=== PATIENT | male | born 1970 | race Caucasian/White ===

== ENCOUNTER → 2020-03-26 13:07 | Outpatient (BNVA) | payer SELFPAY | PROVIDERS: Visit Provider Physician Assistant Medical | DX: Z02.79 Encounter for issue of other medical certificate (principal) ==

== ENCOUNTER → 2021-03-18 08:20 | Outpatient (BNVA) | payer SELFPAY | PROVIDERS: Visit Provider Physician Assistant Medical | DX: Z02.79 Encounter for issue of other medical certificate (principal) ==

== ENCOUNTER → 2022-03-17 08:29 | Outpatient (BNVA) | payer SELFPAY | PROVIDERS: Visit Provider Internal Medicine | DX: Z02.79 Encounter for issue of other medical certificate (principal) ==

== ENCOUNTER → 2023-03-16 09:30 | Outpatient (BNVA) | payer SELFPAY | PROVIDERS: Visit Provider Physician Assistant Medical | DX: Z02.79 Encounter for issue of other medical certificate (principal) ==

== ENCOUNTER 2023-04-30 16:20 | Outpatient (AMB) | payer BC, SELFPAY ==
--- NOTE | 2023-04-30 16:27 | HO.NEPHOV ---
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 His blood pressure is currently well controlled on the current medication regimen. He feels he has low testosterone levels. He was wondering about taking intramuscular testosterone injections. He tries to adhere with low-sodium diet, avoid nonsteroidal anti-inflammatory medications and maintain good hydration. He is very active. He does not have any chest pain, palpitation, syncope, orthostatic symptoms, pedal edema, urinary symptoms, nausea, vomiting or diarrhea. He does not check his blood pressure at home regularly. He has not seen a urologist. [facility] Medical History (Updated 05/01/23 @ 07:55 by Samy Quintana MD) Renal artery stenosis Hypertension Family History Mother Hypertension Father Clogged artery (heart) Social History (Updated 04/30/23 @ 16:32 by Radha Hunter) Alcohol intake: current Comment: occ Patient Tobacco Use Status: Never used Tobacco Vital Signs 04/30/23 16:28 04/30/23 17:03 Height 6 ft Weight 207 lb 4 oz BMI 28.1 BP 144/88 H 130/80 Blood Pressure Location Lt brachial Position Sitting Pulse 63 Pulse Source Pulse Oximeter Pulse Oximetry (%) 98 Oxygen Delivery Method Room Air Physical Exam Vital Signs: Last Vital Signs Pulse 63 04/30/23 16:28 BP 130/80 04/30/23 17:03 Pulse Ox 98 04/30/23 16:28 Oxygen Delivery Method Room Air 04/30/23 16:28 BMI result Body Mass Index 28.1 Const General: comfortable and no acute distress Orientation/consciousness: patient oriented x3 HEENT Head: Yes normocephalic Mouth: Normal oral and palatal mucosa present Eyes EOM: EOMs intact bilaterally Neck Neck: Yes supple Resp Auscultation: clear to auscultation bilaterally Cardio Jugular venous distension: no JVD Rate: regular rate GI Palpation (GI): Soft to palpation Auscultation: normal bowel sounds General: Yes no CVA tenderness Back/Spine/Pelvis Back: no CVA tenderness Skin General skin exam: no rashes or lesions noted Neuro General: patient oriented x3 and moves all extremities Extrem General: Yes no pedal edema Assessment & Plan Assessment & Plan (1) Low testosterone in male: Code(s): R79.89 - Other specified abnormal findings of blood chemistry (2) Renal artery stenosis: Code(s): I70.1 - Atherosclerosis of renal artery (3) Hypertension: Code(s): I10 - Essential (primary) hypertension Qualifiers: Hypertension type: renovascular hypertension Qualified Code(s): I15.0 - Renovascular hypertension Plan Francisco has hypertension from his 20s. Doppler of renal arteries in the past showed less than 60% narrowing of right renal artery. His blood pressure is currently controlled on current dose of angiotensin receptor renetta. He never wanted to take a calcium channel renetta or diuretic. In the past he has mentioned that he does not want angioplasty for renal artery stenosis, if it has to get worse, given he may have to take a blood thinner for some time. He was advised not to take any nonsteroidal anti-inflammatories and maintain good hydration along with a low-sodium diet. He also has been having some erectile disorders and was wondering whether he could take intramuscular testosterone injections as he feels his testosterone levels are on the lower side. He takes sildenafil. I ordered follow-up Doppler of his renal arteries along with repeat renal functions. I also took the liberty to refer him to Dr. Julian Pathak for evaluation of low testosterone levels and or erectile dysfunction. His sildenafil and losartan were refilled. All questions answered. Follow-up given. Orders: Orders US renal doppler 04/30/23 I10 - Essential (primary) hypertension, I70.1 - Atherosclerosis of renal artery Blood Urea Nitrogen 04/30/23 I10 - Essential (primary) hypertension, I70.1 - Atherosclerosis of renal artery Creatinine 04/30/23 I10 - Essential (primary) hypertension, I70.1 - Atherosclerosis of renal artery US renal BI 04/30/23 I10 - Essential (primary) hypertension, I70.1 - Atherosclerosis of renal artery Electrolytes 04/30/23 I10 - Essential (primary) hypertension, I70.1 - Atherosclerosis of renal artery Protein Creatinine Ratio, Ur 04/30/23 I10 - Essential (primary) hypertension, I70.1 - Atherosclerosis of renal artery Referrals Urology Referral R79.89 - Other specified abnormal findings of blood chemistry Medications: New losartan 50 mg PO BID 90 days 180 tabs 3RF sildenafil 50 mg PO DAILY 30 days PRN 30 tabs 6RF sexual activity Coding Level of Care Code Est Pt Level 4 (69735) Diagnoses Low testosterone in male R79.89 Renal artery stenosis I70.1 Renovascular hypertension I15.0 Hypertension type: renovascular hypertension Results Reviewed Nephrology Results: Urine Protein NEGATIVE MG/DL (NEG - TRACE) 03/22/19
[2023-04-30 16:28] VITALS: BP 144/88; PULSE 63; O2SAT 98; BMI 28.1
[2023-04-30 17:03] VITALS: BP 130/80
== END 2023-04-30 17:08 | disposition home or self-care (01) ==
PROVIDERS: PCP Internal Medicine; Visit Provider Internal Medicine Nephrology
DX: R79.89 Other specified abnormal findings of blood chemistry (principal); I70.1 Atherosclerosis of renal artery; I15.0 Renovascular hypertension
CPT/HCPCS: 99214

== ENCOUNTER → 2023-04-30 16:20 | Outpatient (BNVA) | payer BC, SELFPAY | PROVIDERS: PCP Internal Medicine; Visit Provider Internal Medicine Nephrology ==

== ENCOUNTER 2023-05-25 08:51 | Outpatient (REF) | payer BC, SELFPAY ==
--- NOTE | ~2023-05-25 | US_ITS ---
EXAMINATION: ULTRASOUND RENAL WITH DOPPLER CLINICAL INFORMATION: Renal artery atherosclerosis COMPARISON: None. TECHNIQUE: Real-time grayscale, color Doppler, and duplex Doppler evaluation of the kidneys and renal vasculature was performed. FINDINGS: RENAL MEASUREMENTS: Right: 10.8 x 6.4 x 6.0 cm (Sag x AP x TV) Left: 12.1 x 5.9 x 5.4 cm (Sag x AP x TV) The renal parenchyma appears normal. No hydronephrosis or nephrolithiasis. DOPPLER INTERROGATION: Aorta: 86 cm/sec Right Main Renal Artery: Proximal: 178 cm/sec Mid: 193 cm/sec Distal: 141 cm/sec Left Main Renal Artery: Proximal: 178 cm/sec Mid: 136 cm/sec Distal: 112 cm/sec Renal-Aortic Ratio (RAR): Right: 2.3 Left: 2.1 Bilateral upper pole, interpolar and lower pole [segmental] arteriolar resistive indices are within normal limits. Bilateral upper pole, interpolar and lower pole [segmental] arteriolar pulse doppler waveforms are unremarkable, with uniformly rapid upstrokes and no parvus et tardus configuration. US/US renal doppler IMPRESSION: No hemodynamic significant bilateral renal artery stenosis is seen.
--- NOTE | ~2023-05-25 | US_ITS ---
EXAMINATION: ULTRASOUND RENAL WITH DOPPLER CLINICAL INFORMATION: Renal artery atherosclerosis COMPARISON: None. TECHNIQUE: Real-time grayscale, color Doppler, and duplex Doppler evaluation of the kidneys and renal vasculature was performed. FINDINGS: RENAL MEASUREMENTS: Right: 10.8 x 6.4 x 6.0 cm (Sag x AP x TV) Left: 12.1 x 5.9 x 5.4 cm (Sag x AP x TV) The renal parenchyma appears normal. No hydronephrosis or nephrolithiasis. DOPPLER INTERROGATION: Aorta: 86 cm/sec Right Main Renal Artery: Proximal: 178 cm/sec Mid: 193 cm/sec Distal: 141 cm/sec Left Main Renal Artery: Proximal: 178 cm/sec Mid: 136 cm/sec Distal: 112 cm/sec Renal-Aortic Ratio (RAR): Right: 2.3 Left: 2.1 Bilateral upper pole, interpolar and lower pole [segmental] arteriolar resistive indices are within normal limits. Bilateral upper pole, interpolar and lower pole [segmental] arteriolar pulse doppler waveforms are unremarkable, with uniformly rapid upstrokes and no parvus et tardus configuration. US/US renal BI IMPRESSION: No hemodynamic significant bilateral renal artery stenosis is seen.
== END 2023-05-25 08:52 | disposition home or self-care (01) ==
LOC: HO.US 08:51
PROVIDERS: PCP Internal Medicine; Visit Provider Internal Medicine Nephrology
DX: I70.1 Atherosclerosis of renal artery (principal); I10 Essential (primary) hypertension
CPT/HCPCS: 76775; 93975

== ENCOUNTER 2023-07-01 11:04 | Outpatient (AMB) | payer BC, SELFPAY ==
--- NOTE | 2023-07-01 11:01 | MHC.OFFVIS ---
Intake Intake Visit Reasons: ?hypogonadism Intake Note: NEW Patient presents today to established treatment for hypogonadism Meds- Sildenafil Allergies to antibiotics: None Blood thinner: None Patient Symptoms: Patient stated he does not have any pain or urinary issues, he wants to discuss issues with erectile dysfunction and testosterone levels. 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 Barry. He has a past medical history of hypertension and renal artery stenosis. He presents to the office today as a new patient for question of hypogonadism and erectile dysfunction. In discussion with the patient today he reports to be doing and feeling well. He reports having followed up with a physician online for testosterone replacement therapy. He reports he has started TRT approximately 1 month ago however made today's appointment for a 2nd opinion. In review of patient's medical records that were brought to the office today it appears prior to initiation of testosterone replacement and HCG patient's testosterone level was approximately 450 and estradiol was approximately 35. In discussion with the patient today he reports having initiated testosterone therapy as he feels his friends recommended it due to his ongoing fatigue, mood, and ED. In discussion with the patient today he reports he does not get adequate amounts of sleep as he works from approximately 04:00 till 21:00. He reports since initiation of TRT he has not felt any benefits of testosterone replacement. He states my friend/ friends feel like they are on top of the world . He otherwise denies any bothersome urinary issues or concerns. He denies urinary urgency, urinary frequency, incontinence, nocturia, hematuria, dysuria, foul smelling urine, changes to urinary stream, flank pain, fever, and or chills. He is happy with his current voiding parameters. He reports he continues with feeling fatigue and continues with issues maintaining erections. He also reports utilizing Viagra 100 mg p.r.n. sexual activity and feels this is somewhat helpful. Discussed at length lifestyle modifications to assist with erectile dysfunction and fatigue. He denies any signs or symptoms of sleep apnea. He otherwise offers no other issues or concerns at this time. [facility] Medical History Renal artery stenosis Hypertension Family History Mother Hypertension Father Clogged artery (heart) Social History Alcohol intake: current Comment: occ Patient Tobacco Use Status: Never used Tobacco Review of Systems Const All systems reviewed & are unremarkable except as noted in HPI and below Physical Exam Const General: cooperative, healthy appearing, comfortable, no acute distress, well developed, alert and awake Orientation/consciousness: patient oriented x3 Limitations: no limitations HEENT Head: Yes normal to inspection, Yes normocephalic and Yes atraumatic Ears: hearing grossly normal bilaterally Eyes General: appearance normal, both eyes and all related structures Neck Neck: Yes normal visual inspection and Yes trachea midline Chest Chest palpation & inspection: normal inspection of the chest Resp Effort & Inspection: normal respiratory effort and able to speak in complete sentences Cardio Rate: regular rate GI Inspection: Yes normal to inspection General: Yes no CVA tenderness Back/Spine/Pelvis Back: no CVA tenderness Skin General skin exam: no rashes or lesions noted Neuro General: patient oriented x3 Extrem General: Yes normal to inspection Psych Appearance: grossly normal and well kempt Mental Status: mental status grossly normal Speech and movement: Normal speech and movement present and Clear speech present Affect: normal affect Attitude: cooperative Thought process: Normal thought process present Thought content: Normal thought content present Insight: Fair insight present (Psych) Judgement: Fair judgement present (Psych) Results AMB Urinalysis, Automated UA Leukoctes 0 Bradyon/uL Last Edit by Ava Alvarado CMA on 07/01/23 11:23 UA Nitrite Negative Last Edit by Ava Alvarado CMA on 07/01/23 11:23 UA Urobilinogen 0.2 mg/dL Last Edit by Ava Alvarado CMA on 07/01/23 11:23 UA Protein 0 mg/dL Last Edit by Ava Alvarado CMA on 07/01/23 11:23 UA pH 7.0 Last Edit by Ava Alvarado CMA on 07/01/23 11:23 UA Blood 0 Lukas/uL Last Edit by Ava Alvarado CMA on 07/01/23 11:23 UA Specific Mobile 1.010 Last Edit by Ava Alvarado CMA on 07/01/23 11:23 UA Ketone Negative Last Edit by Ava Alvarado CMA on 07/01/23 11:23 UA Bilirubin 0 mg/dL Last Edit by Ava Alvarado CMA on 07/01/23 11:23 UA Glucose 0 mg/dL Last Edit by Ava Alvarado CMA on 07/01/23 11:23 Results Reviewed Results Reviewed: Laboratory Last Values Urine pH (Auto) 7.0 07/01/23 11:06 Specific Mobile (Auto) 1.010 07/01/23 11:06 Urine Protein (Auto) 0 mg/dL 07/01/23 11:06 Glucose (UA)(Auto) 0 mg/dL 07/01/23 11:06 Urine Ketones (Auto) Negative 07/01/23 11:06 Urine Blood (Auto) 0 Lukas/uL 07/01/23 11:06 Urine Nitrite (Auto) Negative 07/01/23 11:06 Urine Bilirubin (Auto) 0 mg/dL 07/01/23 11:06 Urine Urobilinogen (Auto) 0.2 mg/dL 07/01/23 11:06 Leukocyte Esterase (Auto) 0 Braydon/uL 07/01/23 11:06 Assessment & Plan Assessment & Plan (1) Low libido: Code(s): R68.82 - Decreased libido (2) Fatigue: Code(s): R53.83 - Other fatigue (3) Erectile dysfunction: Code(s): N52.9 - Male erectile dysfunction, unspecified Plan In office urinalysis results reviewed with the patient today; as noted above. Medical records reviewed at today's office visit Discussed at length lifestyle modifications to assist with fatigue and erectile dysfunction/ Discussed at length risks and benefits of TRT He reports be happy with current voiding parameters He denies any bothersome urinary issues Follow-up p.r.n.; or sooner with any issues, concerns, and or questions. Orders: Orders AMB Urinalysis Automated 07/01/23 R33.9 - Retention of urine, unspecified Patient Instructions: The patient had an opportunity to ask questions regarding the treatment plan. All questions were answered. Physical exam, labs, and imaging were discussed and reviewed in detail. As well as risks, benefits, and discussion of treatment choices. No major barriers to understanding were identified. The patient expressed understanding and agreement with the above treatment plan. The patient was made aware they should contact our office by phone for worsening of their current condition, the appearance of new symptoms, or with any questions or concerns. Compliance is encouraged with any medications and follow up testing that is ordered. It is a privilege to be allowed the opportunity to participate in? your urological care.? Again, if you have any questions or concerns If you have any questions or concerns please do not hesitate to contact me. The office is [phone]. This note is constructed using voice recognition software. While every effort has been made to ensure accuracy motorboat operator errors may have been included. Yours sincerely, REJI Manley Coding Level of Care Code New Pt Level 4 (14086) Diagnoses Low libido R68.82 Fatigue R53.83 Erectile dysfunction N52.9 Time Spent (min) 35
== END 2023-07-01 11:57 | disposition home or self-care (01) ==
PROVIDERS: PCP Internal Medicine; Visit Provider Nurse Practitioner Family
DX: R68.82 Decreased libido (principal); R53.83 Other fatigue; N52.9 Male erectile dysfunction, unspecified
CPT/HCPCS: 99204

== ENCOUNTER → 2023-07-01 11:09 | Outpatient (BNVA) | payer BC, SELFPAY | PROVIDERS: PCP Internal Medicine; Visit Provider Nurse Practitioner Family | DX: R68.82 Decreased libido (principal); R53.83 Other fatigue; N52.9 Male erectile dysfunction, unspecified | CPT/HCPCS: 81003 ==

== ENCOUNTER 2023-10-29 16:19 | Outpatient (AMB) | payer BC, SELFPAY ==
--- NOTE | 2023-10-29 16:19 | HO.NEPHOV ---
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 His blood pressure is currently well controlled on the current medication regimen. He feels he has low testosterone levels. He was wondering about taking intramuscular testosterone injections. He tries to adhere with low-sodium diet, avoid nonsteroidal anti-inflammatory medications and maintain good hydration. He is very active. He does not have any chest pain, palpitation, syncope, orthostatic symptoms, pedal edema, urinary symptoms, nausea, vomiting or diarrhea. He does not check his blood pressure at home regularly. [facility] Medical History Renal artery stenosis Hypertension Family History Mother Hypertension Father Clogged artery (heart) Social History Alcohol intake: current Comment: [facility] Patient Tobacco Use Status: Never used Tobacco Physical Exam Vital Signs: Last Vital Signs Pulse 69 10/29/23 16:20 BP 130/82 10/29/23 16:20 Pulse Ox 97 10/29/23 16:20 Oxygen Delivery Method Room Air 10/29/23 16:20 BMI result Body Mass Index 25.6 Const General: comfortable and no acute distress Orientation/consciousness: patient oriented x3 HEENT Head: Yes normocephalic Mouth: Normal oral and palatal mucosa present Eyes EOM: EOMs intact bilaterally Neck Neck: Yes supple Resp Auscultation: clear to auscultation bilaterally Cardio Jugular venous distension: no JVD Rate: regular rate GI Palpation (GI): Soft to palpation Auscultation: normal bowel sounds General: Yes no CVA tenderness Back/Spine/Pelvis Back: no CVA tenderness Skin General skin exam: no rashes or lesions noted Neuro General: patient oriented x3 and moves all extremities Extrem General: Yes no pedal edema Results Reviewed Nephrology Results: Urine Protein NEGATIVE MG/DL (NEG - TRACE) 03/22/19 Renal US 05/25/23 Assessment & Plan Assessment & Plan (1) Hypertension: Code(s): I10 - Essential (primary) hypertension Category: Medical Qualifiers: Hypertension type: renovascular hypertension Qualified Code(s): I15.0 - Renovascular hypertension (2) Renal artery stenosis: Code(s): I70.1 - Atherosclerosis of renal artery Category: Medical Plan Dong has hypertension from his 20s. Doppler of renal arteries in the past showed less than 60% narrowing of right renal artery. His blood pressure is currently controlled on current dose of angiotensin receptor renetta. He never wanted to take a calcium channel renetta or diuretic. In the past he has mentioned that he does not want angioplasty for renal artery stenosis, if it has to get worse, given he may have to take a blood thinner for some time. He was advised not to take any nonsteroidal anti-inflammatories and maintain good hydration along with a low-sodium diet. He takes sildenafil as neede. I ordered follow-up Doppler of his renal arteries along with repeat renal functions. All questions answered. Follow-up given. Orders: Orders Creatinine Today I15.0 - Renovascular hypertension, I70.1 - Atherosclerosis of renal artery Blood Urea Nitrogen Today I15.0 - Renovascular hypertension, I70.1 - Atherosclerosis of renal artery Electrolytes Today I15.0 - Renovascular hypertension, I70.1 - Atherosclerosis of renal artery Protein Creatinine Ratio, Ur Today I15.0 - Renovascular hypertension, I70.1 - Atherosclerosis of renal artery Medications: Changed From losartan 50 mg PO BID 90 days 180 tabs 3RF To losartan 100 mg PO DAILY 90 days 90 tabs 4RF Coding Level of Care Code Est Pt Level 4 (67063) Diagnoses Renovascular hypertension I15.0 Hypertension type: renovascular hypertension Renal artery stenosis I70.1
[2023-10-29 16:20] VITALS: BP 130/82; PULSE 69; O2SAT 97; BMI 25.6
== END 2023-10-29 16:42 | disposition home or self-care (01) ==
PROVIDERS: PCP Internal Medicine; Visit Provider Internal Medicine Nephrology
DX: I15.0 Renovascular hypertension (principal); I70.1 Atherosclerosis of renal artery
CPT/HCPCS: 99214

== ENCOUNTER → 2023-10-29 16:19 | Outpatient (BNVA) | payer BC, SELFPAY | PROVIDERS: PCP Internal Medicine; Visit Provider Internal Medicine Nephrology ==

== ENCOUNTER → 2024-03-14 09:40 | Outpatient (BNVA) | payer SELFPAY | PROVIDERS: PCP Internal Medicine; Visit Provider Physician Assistant Medical | DX: Z02.79 Encounter for issue of other medical certificate (principal) ==

== ENCOUNTER 2024-10-27 16:15 | Outpatient (AMB) | payer BC, SELFPAY ==
--- NOTE | 2024-10-27 16:18 | HO.NEPHOV ---
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 His blood pressure is currently well controlled on the current medication regimen. He feels he has low testosterone levels. He was wondering about taking intramuscular testosterone injections. He tries to adhere with low-sodium diet, avoid nonsteroidal anti-inflammatory medications and maintain good hydration. He is very active. He does not have any chest pain, palpitation, syncope, orthostatic symptoms, pedal edema, urinary symptoms, nausea, vomiting or diarrhea. He does not check his blood pressure at home regularly. [facility] Medical History Renal artery stenosis Hypertension Family History Mother Hypertension Father Clogged artery (heart) Social History Alcohol intake: current Comment: occ Patient Tobacco Use Status: Never used Tobacco Review of Systems Const All systems reviewed & are unremarkable except as noted in HPI and below Physical Exam Const General: comfortable and no acute distress Orientation/consciousness: patient oriented x3 HEENT Head: Yes normocephalic Mouth: Normal oral and palatal mucosa present Eyes EOM: EOMs intact bilaterally Neck Neck: Yes supple Resp Auscultation: clear to auscultation bilaterally Cardio Jugular venous distension: no JVD Rate: regular rate GI Palpation (GI): Soft to palpation Auscultation: normal bowel sounds General: Yes no CVA tenderness Back/Spine/Pelvis Back: no CVA tenderness Skin General skin exam: no rashes or lesions noted Neuro General: patient oriented x3 and moves all extremities Extrem General: Yes no pedal edema Results Reviewed Nephrology Results: Urine Protein, (NEG - TRACE) NEGATIVE MG/DL 03/22/19 Renal US 05/25/23 Assessment & Plan Assessment & Plan (1) Hypertension: Code(s): I10 - Essential (primary) hypertension Category: Medical Qualifiers: Hypertension type: renovascular hypertension Qualified Code(s): I15.0 - Renovascular hypertension (2) Renal artery stenosis: Code(s): I70.1 - Atherosclerosis of renal artery Category: Medical Plan Dong has hypertension from his 20s. Doppler of renal arteries in the past showed less than 60% narrowing of right renal artery. His blood pressure is currently controlled on current dose of angiotensin receptor renetta. He never wanted to take a calcium channel renetta or diuretic. In the past he has mentioned that he does not want angioplasty for renal artery stenosis, if it has to get worse, given he may have to take a blood thinner for some time. He was advised not to take any nonsteroidal anti-inflammatories and maintain good hydration along with a low-sodium diet. He takes sildenafil as needed. Doppler of his renal arteries last year did not show any significant ANDREIA. All questions answered. Follow-up given. Orders: Orders Blood Urea Nitrogen 1 Year I15.0 - Renovascular hypertension, I70.1 - Atherosclerosis of renal artery Electrolytes 1 Year I15.0 - Renovascular hypertension, I70.1 - Atherosclerosis of renal artery Creatinine 1 Year I15.0 - Renovascular hypertension, I70.1 - Atherosclerosis of renal artery Protein Creatinine Ratio, Ur 1 Year I15.0 - Renovascular hypertension, I70.1 - Atherosclerosis of renal artery Medications: New sildenafil (Viagra) administer 30 minutes to 4 hours before activity 100 mg PO DAILY PRN 30 tabs 10RF sexual activity Discontinued tadalafil Discontinued Reason: Doctor's Order 5 mg PO DAILY 30 tabs 3RF Coding Level of Care Code Est Pt Level 4 (29789) Diagnoses Renovascular hypertension I15.0 Hypertension type: renovascular hypertension Renal artery stenosis I70.1
[2024-10-27 16:24] VITALS: BP 140/90; PULSE 62; O2SAT 97; BMI 28.7
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
--- OUTSIDE RECORDS SUMMARY | 2024-10-27 16:25 | XMS_ITS ---
Author Name [facility] Organization Unknown History of Medication Use Medication Directions Dispensed Refills Start Date End Date Stat ciclopirox 8 % topical solution APPLY 1 APPLICATION TO NAILS DAILY REMOVE ONCE A WEEK WITH RUBBING ALCOHOL active desonide 0.05 % topical ointment APPLY SPARINGLY TO EYELIDS TWICE A DAY X2 WKS ON, 1 WK OFF NEEDED active fluorouracil 5 % topical cream PLEASE SEE ATTACHED FOR DETAILED DIRECTIONS active loratadine 10 mg tablet TAKE 1 TABLET BY MOUTH TWICE A DAY active losartan 100 mg tablet TAKE 1 TABLET BY MOUTH EVERY DAY FOR 90 DAYS active losartan 50 mg tablet TAKE 1 TABLET BY MOUTH TWICE A DAY active naproxen 250 mg tablet TAKE 2 TABLETS BY MOUTH TWICE A DAY FOR 7 DAYS active ondansetron 4 mg disintegrating tablet TAKE 1 TABLET BY MOUTH EVERY 8 HOURS NEEDED FOR NAUSEA/VOMITING active oxycodone 5 mg tablet TAKE 1 TABLET BY MOUTH EVERY 4-6 HOURS NEEDED FOR POSTOPERATIVE PAIN FOR 5 DAYS active prednisone 5 mg tablet PLEASE SEE ATTACHED FOR DETAILED DIRECTIONS active sildenafil 50 mg tablet TAKE 1 TABLET NEEDED FOR SEXUAL ACTIVITY active tadalafil 5 mg tablet TAKE 1 TABLET BY MOUTH DAILY active terbinafine HCl 250 mg tablet TAKE 1 TABLET BY MOUTH EVERY DAY active zolpidem 10 mg tablet TAKE 1 TABLET EVER Y DAY BY ORAL ROUTE NEEDED. active Encounters Encounter Type Encounter Reason Primary Diagnosis Location Date Ambulatory [facility] 08/17/2024 Ambulatory [facility] 08/16/2024 Ambulatory [facility] 07/25/2024 Ambulatory [facility] 07/12/2024 Ambulatory [facility] 07/12/2024 Ambulatory [facility] 07/12/2024 Ambulatory [facility] 07/12/2024 Ambulatory [facility] 06/02/2024 Ambulatory [facility] 06/02/2024
--- OUTSIDE RECORDS SUMMARY | 2024-10-27 16:25 | XMS_ITS | Encounter Summary ---
Author Organization [facility] Address [address] [place] [address] Phone Care Team Providers Care Director Of Photography Name Role Phone Dong Barry MD Primary Care Provider [phone] Encounter Details Date Type Department Care Team (Late st Contact Info) Description 2022 Telephone [facility] [address] [place] [address] Samy Quintana MD Social History Tobacco Use Types Packs/Day Years Used Date Smoking Tobacco: Never Smokeless Tobacco: Never Alcohol Use Standard Drinks/Week Comments Yes 0 (1 standard drink = 0.6 oz pur e alcohol) social Sex and Gender Information Value Date Recorded Sex Assigned at Not on file Legal Sex Male 4:59 PM EST Gender Identity Not on file Sexual Orientation Not on file documented as of this encounter Miscellaneous Notes * Telephone Encounter - Sujata Vasquez - 2022 10:20 AM EDT Pt called he would like to speak with you reg some issues he's been having. Pt mel not go into further detail. Please call him back at [phone] Thank you documented in this encounter Plan of Treatment Not on file documented as of this encounter Visit Diagnoses Not on filedocumented in this encounter Care Teams Director Of Photography Relationship Specialty Start Date End Date Dong Barry MD [address] [place] [address] PCP - General 04/23/20 documented as of this encounter
--- OUTSIDE RECORDS SUMMARY | 2024-10-27 16:25 | XMS_ITS | Clinical Summary ---
Author Organization [employer] Address [address] [place] [address] Care Team Providers Care Manufacturing Supervisor 2Nd Shift Name Role Phone Unavailable Primary Care Provider Unavailabl e Allergies No known active allergies Medications losartan (Cozaar) 25 MG tablet 1 tablet in the morning. 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 Presbyopia of both eyes 03/24/2023 03/24/20 23 Family History Medical History Relation Name Comments Glaucoma Mother Paternal uncle almost blind Other paternal uncle macular degeneration Other Relation Name Status Comments Mother Other Social History Tobacco Use Types Packs/Day Years Used Date Smoking Tobacco: Never Tobacco Cessation:Counseling Given: Not Answered Sex and Gender Information Value Date Recorded Sex Assigned at Male 04/30/2023 12:02 PM EST Legal Sex Male 8:37 PM EDT Gender Identity Male 04/30/2023 12:02 PM EST Sexual Orientation Choose not to disclose 2023 12:02 PM EST Last Filed Vital Signs Vital Sign Reading Time Taken Comments Blood Pressure 134/86 05/06/2023 10:22 AM EST Pulse - - Temperature 36.3 C (97.3 F) 05/06/2023 10:22 AM EST Respiratory Rate - - Oxygen Saturation - - Inhaled Oxygen Concentration - - Weight - - Height - - Body Mass Index - - Plan of Treatment Health Maintenance Due Date Last Done Comments CT Colonography 1970 Colonoscopy 1970 Colorectal Cancer Screening 1970 Depression Screening 1970 FIT DNA/Cologuard 1970 FIT 1970 FOBT 1970 HIV Screening 1970 Lipid Panel 1970 SDOH Screening 1970 Sigmoidoscopy 1970 Disability Screening 1970 Alcohol/Substance Use Screening 1982 Tobacco Screening 1982 Hepatitis C Screening 01/29/1988 Hepatitis B Vaccines (1 of 3 - 19+ 3-dose series) 1989 Pneumococcal Vaccine: 50+ Years (1 of 1 - PCV) 01/29/2020 COVID-19 Vaccine (3 - 2023- season) 2023 09/21/2020, 08/31/2020 Influenza Vaccine (#1) 2024 DTaP/Tdap/Td Vaccines (4 - Td or Tdap) 10/18/2029 10/19/2019, 03/29/2018, 04/21/2011, Additional history exists RSV Patients and Patients Aged 60 years or older (1 - 1-dose 75+ series) 2045 Zoster Vaccines Completed 07/11/2021, 04/11/2021 HIB Vaccines Aged Out No longer eligi ble based on patient's age to complete this topic HPV Vaccines Aged Out No longer eligi ble based on patient's age to complete this topic Hepatitis A Vaccines Aged Out No long er eligible based on patient's age to complete this topic IPV Vaccines Aged Out No longer eligi ble based on patient's age to complete this topic Meningococcal B Vaccine Aged Out No l onger eligible based on patient's age to complete this topic Meningococcal Vaccine Aged Out No priyanka mikel eligible based on patient's age to complete this topic RSV under 20 months Aged Out No longe r eligible based on patient's age to complete this topic Rotavirus Vaccines Aged Out No longer eligible based on patient's age to complete this topic Insurance [facility] PPO
== END 2024-10-28 09:59 | disposition home or self-care (01) ==
LOC: HO.HKAS 16:15
PROVIDERS: PCP Internal Medicine; Visit Provider Internal Medicine Nephrology
DX: I15.0 Renovascular hypertension (principal); I70.1 Atherosclerosis of renal artery
CPT/HCPCS: 99214

== ENCOUNTER 2025-01-20 08:44 | Outpatient (AMB) | payer BC, SELFPAY ==
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
[2025-01-20 08:58] VITALS: BMI 28.5
--- OUTSIDE RECORDS SUMMARY | 2025-01-20 09:03 | XMS_ITS | Encounter Summary ---
Author Organization [facility] Address [address] [place] [address] Phone Care Team Providers Care Assistant Athletic Trainer Name Role Phone Dong Barry MD Primary Care Provider [phone] Encounter Details Date Type Department Care Team (Late st Contact Info) Description 2022 Telephone [facility] [address] [place] [address] Samy Quintana MD Social History [...] further detail. Please call him back at [phone] Thank you documented in this encounter Plan of Treatment Not on file documented as of this encounter Visit Diagnoses Not on filedocumented in this encounter Care Teams Assistant Athletic Trainer Relationship Specialty Start Date End Date Dong Barry MD [address] [place] [address] PCP - General 04/23/20 documented as of this encounter
--- OUTSIDE RECORDS SUMMARY | 2025-01-20 09:03 | XMS_ITS | Encounter Summary ---
Author Organization [facility] Address [address] [place] [address] Phone Care Team Providers Care Water Conservationist Name Role Phone Dong Barry MD Primary Care Provider [phone] Encounter Details Date Type Department Care Team (Late st Contact Info) Description 07/08/2021 Telephone [facility] [address] [place] [address] Samy Quintana MD Social History Tobacco Use Types Packs/Day Years Used Date Smoking Tobacco: Never Smokeless Tobacco: Never Alcohol Use Standard Drinks/Week Comments No 0 (1 standard drink = 0.6 oz pur e alcohol) Sex and Gender Information Value Date Recorded Sex Assigned at Not on file Legal Sex Male 4:59 PM EST Gender Identity Not on file Sexual Orientation Not on file documented as of this encounter Miscellaneous Notes * Telephone Encounter - Sujata Vasquez - 07/08/2021 2:51 PM EDT Pt called he would like to speak with you reg his bp. Its normal for the time being he just has some additional questions. Please call him back at [phone] Thank you documented in this encounter Plan of Treatment Not on file documented as of this encounter Visit Diagnoses Not on filedocumented in this encounter Care Teams Water Conservationist Relationship Specialty Start Date End Date Dong Barry MD [address] [place] [phone] PCP - General 04/23/20 documented as of this encounter
--- OUTSIDE RECORDS SUMMARY | 2025-01-20 09:04 | XMS_ITS | Clinical Summary ---
Author Organization [facility] Address [address] [facility] [address] [place] [address] Care Team Providers Care Producer Assistant Name Role Phone Unavailable Primary Care Provider [...] - PCV) 01/29/2020 COVID-19 Vaccine (3 - 2024- season) 2024 09/21/2020, 08/31/2020 Influenza Vaccine (#1) 2024 DTaP/Tdap/Td [...] patient's age to complete this topic Insurance [facility] PPO
--- OUTSIDE RECORDS SUMMARY | 2025-01-20 09:04 | XMS_ITS | Clinical Summary ---
Author Organization [facility] Address [address] [facility] [facility] [address] [place] [address] Phone Care Team Providers Care Telesales Agent Name Role Phone Dong Barry MD Primary Care Provider [phone] Allergies No known active allergies Medications ascorbic acid (VITAMIN C) 500 MG tablet Take 1 tablet by mouth 1 (one) time each day Active Calcium-Magnesi um-Vitamin D 400-166.7-133.3 MG-MG-UNIT tablet Take 1 tablet by mouth 1 (one) time each day Active Coenzyme Q10 100 MG tablet Take 1 tablet by mouth 1 (one) time each day Active omega-3 (FISH OIL) 1000 MG capsule Take 2 capsules by mouth 1 (one) time each day Active Glucosamine-Cho ndroitin 750-600 MG tablet Take 1 tablet by mouth 1 (one) time each day Active Multiple Vitamin (MULTIVITAMIN ADULT PO) Take 1 tablet by mouth 1 (one) time each day Active sildenafil (Viagra) 50 MG tablet Take 1 tablet (50 mg total) by mouth 1 (one) time each day if needed for erectile dysfunction 30 tablet 5 3 Active losartan (COZAAR) 50 MG tablet Take 1 tablet (50 mg total) by mouth in the morning and 1 tablet (50 mg total) in the evening. 180 tablet 5 3 Active Active Problems Problem Noted Date Diagnosed Date Essential hypertension 09/20/2020 Renal artery stenosis 09/20/2020 Hypertension 09/20/2020 Spondylosis without myelopathy 01/16/2020 Low back pain 10/08/2012 Overview (09/20/2020): Low back pain Immunizations Immunization Administration Dates Next Due [employer] SARS-COV-2 09/21/2020,08/31/2020 Tdap 10/19/2019,04/21/2011 Family History Medical History Relation Comments Diabetes Father Heart disease Father Hypertension Mother Relation Status Comments Father Alive Mother Alive Social History Tobacco Use Types Packs/Day Years Used Date Smoking Tobacco: Never Smokeless Tobacco: Never Tobacco Cessation:Counseling Given: Not Answered Alcohol Use Standard Drinks/Week Comments Yes 0 (1 standard drink = 0.6 oz pur e alcohol) social Sex and Gender Information Value Date Recorded Sex Assigned at Not on file Legal Sex Male 4:59 PM EST Gender Identity Not on file Sexual Orientation Not on file Last Filed Vital Signs Vital Sign Reading Time Taken Comments Blood Pressure 130/80 06/26/2022 3:22 PM EDT Pulse 70 06/26/2022 3:22 PM EDT Temperature - - Respiratory Rate - - Oxygen Saturation 97% 12/26/2021 3:30 PM EDT Inhaled Oxygen Concentration - - Weight 95.7 kg (211 lb) 06/26/2022 3:22 PM EDT Height 182.9 cm (6') 08/05/2019 12:00 PM EDT Body Mass Index 28.62 08/05/2019 12:00 PM EDT Plan of Treatment Health Maintenance Due Date Last Done Comments Hepatitis B Vaccine (1 of 3 - 19+ 3-dose series) 01/28 Pneumococcal Vaccine: 50+ Years (1 of 2 - PCV) 989 Colorectal Cancer Screening: Annual FOBT 2019 Colorectal Cancer Screening: Colonoscopy 2019 Colorectal Cancer Screening: Sigmoidoscopy 2019 Influenza Vaccine (#1) 2024 Insurance [facility] Care Teams Telesales Agent Relationship Specialty Start Date End Date Dong Barry MD [address] [place] [phone] PCP - General 04/23/20
== END 2025-01-20 10:31 | disposition home or self-care (01) ==
LOC: HO.HNS 08:45
PROVIDERS: PCP Internal Medicine; Visit Provider Physician Assistant
DX: M54.9 Dorsalgia, unspecified (principal)
CPT/HCPCS: 99204

== ENCOUNTER 2025-01-20 08:44 | Outpatient (REF) | payer BC, SELFPAY ==
--- NOTE | ~2025-01-20 | XR_ITS ---
EXAMINATION: XR LUMBOSACRAL SPINE CLINICAL INFORMATION: M54.9 - Dorsalgia, unspecified COMPARISON: None available. TECHNIQUE: 4 views of the lumbar spine, inclusive of flexion and extension views, were obtained. FINDINGS: There is a minimal left convex scoliosis, apex at L3-4. There is a normal lumbar lordosis. There is a 2 mm degenerative retrolisthesis of L2 on L3. Alignment is otherwise anatomic. There is no fracture, compression deformity, or suspicious bone lesion. Severe disc degeneration is present at L1-2, and L5-S1 with disc vacuum phenomenon, and sclerosis of the endplates. There is otherwise mild to moderate disc degeneration at the other levels. There is normal facet alignment. There are degenerative facet changes spanning L4-S1. Flexion and extension views demonstrate no evidence of instability or new subluxation. The sacrum is intact. There are mild degenerative changes in the SI joints. There are no soft tissue abnormalities. XR/XR lumbar spine 4V min IMPRESSION: 1. No acute bony abnormalities. 2. Moderate multilevel spondylosis, most significant at L1-2, and L5-S1. There is a minimal levoconvex scoliosis. 3. No evidence of instability on flexion and extension views. Electronically signed by: Robbi Rosa MD 01/20/2025 09:36 AM EDT
--- OUTSIDE RECORDS SUMMARY | 2025-01-20 09:54 | XMS_ITS | Encounter Summary ---
Author Organization [facility] Address [address] [facility] [address] [place] [phone] Phone Care Team Providers Care Motion And Time Study Teacher Name Role Phone Dong Barry MD Primary Care Provider [phone] Samy Quintana MD Unavailable Encounter Details Date Type Department Care Team (Late st Contact Info) Description 06/18/2020 Procedure Pass [facility] Endoscopy Admitting Dept Virtual Department [address] [place] [address] Social History Tobacco Use Types Packs/Day Years Used Date Smoking Tobacco: Never Smokeless Tobacco: Never Alcohol Use Standard Drinks/Week Comments Not Currently 0 (1 standard drink = 0.6 oz pur e alcohol) Sex and Gender Information Value Date Recorded Sex Assigned at Not on file Legal Sex Male 5:40 PM EST Gender Identity Not on file Sexual Orientation Not on file documented as of this encounter Plan of Treatment Not on file documented as of this encounter Visit Diagnoses Not on filedocumented in this encounter Care Teams Motion And Time Study Teacher Relationship Specialty Start Date End Date Dong Barry MD PCP - General Internal Medicine 01/10/20 Samy Quintana MD Flower Arranger Nephrology 01/16/20 documented as of this encounter Additional Source Comments The information contained in this document represents components of the legal health record. It is not the complete legal health record.[facility]
--- OUTSIDE RECORDS SUMMARY | 2025-01-20 09:54 | XMS_ITS | Encounter Summary ---
Author Organization [facility] Address [address] [facility] [address] [place] [phone] Phone Care Team Providers Care Center Consultant Name Role Phone Dong Barry MD Primary Care Provider [phone] Samy Quintana MD Unavailable Encounter Details Date Type Department Care Team (Late st Contact Info) Description 04/17/2022 Procedure Pass [place] Admitting Dept - Virtual Department [address] [place] [address] Social History Tobacco Use Types Packs/Day Years Used Date Smoking Tobacco: Never Smokeless Tobacco: Never Alcohol Use Standard Drinks/Week Comments Never 0 (1 standard drink = 0.6 oz [...] on filedocumented in this encounter Care Teams Center Consultant Relationship Specialty Start Date End Date Dong Barry MD PCP - General Internal Medicine 01/10/20 Samy Quintana MD Food Beverage Server Nephrology 01/16/20 documented as of this encounter Additional Source Comments The information contained in this document represents components of the legal health record. It is not the complete legal health record.[facility]
--- OUTSIDE RECORDS SUMMARY | 2025-01-20 09:54 | XMS_ITS | Encounter Summary ---
Author Organization [facility] Address [address] [facility] [address] [place] [phone] Phone Care Team Providers Care Manager Video Name Role Phone Dong Barry MD Primary Care Provider [phone] Samy Quintana MD Unavailable Encounter Details Date Type Department Care Team (Late st Contact Info) Description 02/01/2024 Procedure Pass [facility] [place] [address] [place] [address] Social History Tobacco Use Types Packs/Day Years Used Date Smoking Tobacco: Never Smokeless Tobacco: Never Alcohol Use Standard Drinks/Week Comments Never 0 (1 standard drink = 0.6 oz pur e alcohol) Education Answer Date Recorded Are you interested in more education? Not on rony e 08/24/2022 Are you concerned about learning? Not on file 08/24/2022 No 08/24/2022 No 08/24/2022 Digital Access Answer Date Recorded No 09/07/2022 No 09/07/2022 Reliable internet access at home? Not on file 09/07/2022 Device with a working camera? Not on file Intimate Partner Violence Answer Date R ecorded Are you denied basic needs s uch as food, clothing, or medical care? No 02/01/2024 In the past 12 months have y ou been in a relationship with a person who hurts, threatens, or tries to control you? No 02/01/2024 Are you denied basic needs s uch as food, clothing, or medical care? No 02/01/2024 In the past 12 months have y ou been in a relationship with a person who hurts, threatens, or tries to control you? No 02/01/2024 Sex and Gender Information Value Date Recorded Sex Assigned at Not on file Legal Sex Male 5:40 PM EST Gender Identity Not on file Sexual Orientation Not on file documented as of this encounter Plan of Treatment Not on file documented as of this encounter Visit Diagnoses Not on filedocumented in this encounter Care Teams Manager Video Relationship Specialty Start Date End Date Dong Barry MD [email or web address] PCP - General Internal Medicine 01/10/20 Samy Quintana MD Excavating Contractor Nephrology 01/16/20 documented as of this encounter Additional Source Comments The information contained in this document represents components of the legal health record. It is not the complete legal health record.[facility]
--- OUTSIDE RECORDS SUMMARY | 2025-01-20 09:54 | XMS_ITS | Clinical Summary ---
Author Organization [facility] Address [address] [place] [address] Phone Care Team Providers Care [facility] Television Rental Clerk Name Role Phone Yuriy Reaves MD Primary Care Provider [phone] Samy Quintana MD Unavailable Allergies No known active allergies Medications losartan (COZAAR) 50 MG tablet Take 100 mg by mouth daily. Active ibuprofen (ADVIL,MOTRIN) 200 MG tablet Take 200 mg by mouth every 6 (six) hours as needed for pain (specific location in comments). Active multivitamin-mi nerals-lutein (CENTRUM SILVER) Tab Take 1 tablet by mouth daily. Active coenzyme Q10 100 mg capsule Take 100 mg by mouth daily. Active zinc sulfate (ZINC-220 ORAL) Take by mouth. Active omega 8-mnj-hsd-fish oil 1,000 mg (120 mg-180 mg) Cap Take 1 capsule by mouth daily. Active Ca cit-D3-mag#11-z fmk-ehmd-fwc-abdifatah r (CALTRATE 600+D) 600 mg calcium- 800 unit-50 mg Tab Take 1 tablet by mouth daily. Active cholecalciferol (VITAMIN D3) 25 MCG (1,000 unit) tablet Take 1,000 Units by mouth daily. Active ascorbic acid, vitamin C, (VITAMIN C) 500 MG tablet Take 500 mg by mouth daily. Active oxyCODONE 5 MG immediate release tablet Take 1 tablet (5 mg total) by mouth every 4 (four) hours as needed. Partial fill ok 10 tablet Active Additional Information Patient not taking.Reported on 12/03/2023 terbinafine HCL (LAMISIL) 250 mg tablet Take 250 mg by mouth daily. Active tadalafiL (CIALIS) 5 MG tablet Take 5 mg by mouth daily as needed for erectile dysfunction. Active acetaminophen (TYLENOL) 325 mg tablet Take 2 tablets (650 mg total) by mouth every 6 (six) hours as needed. 4 Active oxyCODONE 5 MG immediate release tablet Take 1-2 tablets (5-10 mg total) by mouth every 4 (four) hours as needed. Partial fill ok 10 tablet 4 Active ibuprofen (ADVIL,MOTRIN) 200 MG tablet Take 2 tablets (400 mg total) by mouth every 6 (six) hours as needed for pain (specific location in comments). 4 Active ondansetron (ZOFRAN) 4 MG tablet Take 1 tablet (4 mg total) by mouth every 8 (eight) hours as needed for nausea. 5 tablet 2 4 Active Active Problems Problem Noted Date Diagnosed Date Hypertension 12/28/2023 Overview (12/28/2023): followed yearly by counselor aid for BP was well BCC (basal cell carcinoma of skin) 12/28/2023 Overview (12/28/2023): nose Spondylosis without myelopathy 01/16/2020 Low back pain 10/08/2012 Overview (06/03/2014): Low back pain Family History Medical History Relation Comments Coronary artery disease Father Breast cancer Mother COPD Mother Hypertension Mother Relation Status Comments Father Mother Social History Tobacco Use Types Packs/Day Years Used Date Smoking Tobacco: Never Smokeless Tobacco: Never Tobacco Cessation:Counseling Given: Not Answered Alcohol Use Standard Drinks/Week Comments Never 0 [...] Sign Reading Time Taken Comments Blood Pressure 156/80 02/01/2024 12:50 PM EDT Pulse 60 02/01/2024 12:50 PM EDT Temperature 36.2 C (97.2 F) 02/10/2024 1:01 PM EDT Respiratory Rate 16 02/01/2024 12:50 PM EDT Oxygen Saturation 96% 02/01/2024 12:50 PM EDT Inhaled Oxygen Concentration - - Weight 93 kg (205 lb) 08/24/2024 3:33 PM EDT Height 182.9 cm (6') 08/24/2024 3:33 PM EDT Body Mass Index 27.8 08/24/2024 3:33 PM EDT Plan of Treatment Health Maintenance Due Date Last Done Comments BLOOD PRESSURE 1970 CREATININE LEVEL 1970 LIPID PANEL 1970 POTASSIUM LEVEL 1970 DEPRESSION SCREENING 1982 HEPATITIS C SCREENING 01/29/1988 HIV ONE-TIME SCREENING (18-65 YEARS) 01/29/1988 SCREENING FOR DIABETES 2005 COLOGUARD 2015 FIT TEST 2015 FOBT 2015 SIGMOIDOSCOPY 2015 VIRTUAL COLONOSCOPY 2015 PNEUMOCOCCAL VACCINES (50+ years) (1 of 1 - PCV) 01/29/2020 INFLUENZA VACCINE (#1) 2024 COVID-19 VACCINE (3 - 2024- season) 2024 09/21/2020, 08/31/2020 Adult Td,Tdap Booster 10/18/2029 10/19/2019 , 03/29/2018, 04/21/2011, Additional history exists COLONOSCOPY 06/18/2030 06/18/2020 COLORECTAL CANCER SCREENING 06/18/2030 RSV VACCINE (1 - 1-dose 75+ series) 2045 ZOSTER VACCINES Completed 07/11/2021, 04/11/2021 SMOKING STATUS SCREENING (Once After 26 Yrs) Completed 02/01/2024 HEPATITIS A VACCINES Aged Out No long er eligible based on patient's age to complete this topic HIB VACCINES Aged Out No longer eligi ble based on patient's age to complete this topic MENINGOCOCCAL VACCINES (ACWY) Aged Out No longer eligible based on patient's age to complete this topic MENINGOCOCCAL VACCINES (B) Aged Out N o longer eligible based on patient's age to complete this topic Medical Devices Implanted Type Area Electronics Engineer Device Identifier Shelf Expiration Date Model / Serial / Lot Graft Mesh 10.5cm 16cm 3dmax Polypropylene Monofilament Patch Laparoscopy Hernia Repair Right - [id number] Implanted:Qty: 1 on 04/17/2022 by Julian Bettencourt MD at [facility] STANDARD Right: Inguinal [employer] [id number] 01/08/2027 [id number] / / [id number] Procedures Procedure Name Priority Date/Time Associated Diagnosis Comments ENDOSCOPY, COLON 06/18/2020 11:3 6 AM EST from Last 3 Months or Most Recently Relevant to Health Maintenance Results * ENDOSCOPY, COLON (06/18/2020 11:36 AM EST) Narrative Transcriptions Yuriy Chaudhary MD - 06/18/2020 11:36 AM EST Patient Name: Yuriy Lopes MD:: YURIY CHAUDHARY MD Procedure Date: 06/18/2020 11:36 AM Date of : 1970 Age: 50 Admit Type: Outpatient Gender: Male Room: [facility] 05 Referring MD: YURIY REAVES MD Exam Type: Colonoscopy Indications: Screening for colorectal malignant neoplasm Medications: Monitored Anesthesia Care Procedure: Informed consent was obtained from the patient after discussion of the indications, limitations, alternatives, benefits, and risks of the procedure. Risks specifically discussed include but are not limited to medication reactions, missed lesions, bleeding, perforation, or the need for emergentsurgery. Throughout the procedure, the patient's bloodpressure, pulse, end-tidal CO2, and oxygen saturations were monitored continuously. The Olympus adult variable colonoscope [id number] #1was introduced through the anus and advanced to thececum, identified by appendiceal orifice and ileocecalvalve. The colonoscopy was performed without difficulty.The patient tolerated the procedure fairly well. The quality of the bowel preparation was adequate to identify polyps. Complications: No immediate complications. Estimated blood loss:None. Findings: The perianal and digital rectal examinations were normal. Pertinent negatives include normal sphincter tone. Retroflexion in the right colon was performed. The entire examined colon appeared normal on directand retroflexion views. Impression: - The entire examined colon is normal on direct and retroflexion views. - No specimens collected. Recommendation: - Repeat colonoscopy in 10 years for screeningpurposes. YURIY CHAUDHARY MD 06/18/2020 11:58:41 AM This report has been signed electronically. Number of Addenda: 0 Note Initiated On: 06/18/2020 11:36 AM Procedure Code(s): --- Professional --- 28258, Colonoscopy, flexible; diagnostic, including collection of specimen(s) by brushing or washing, when performed (separateprocedure) --- Technical --- 69860, Colonoscopy, flexible; diagnostic, including collection of specimen(s) by brushing or washing, when performed (separateprocedure) Diagnosis Code(s): --- Professional --- Z12.11, Encounter for screening for malignantneoplasm of colon --- Technical --- Z12.11, Encounter for screening for malignantneoplasm of colon CPT copyright 2018 [employer]. All rights reserved. The codes documented in this report are preliminary and upon spiritual care coordinator reviewmay be revised to meet current compliance requirements. Procedure Date: 06/18/2020 11:36:[address] [place] [id number] Yuriy Reaves MD GI PROCEDURE ORDERABLES Final R esult from Last 3 Months or Most Recently Relevant to Health Maintenance Insurance [facility] PPO EPO [facility] PPO EPO [place]PO [place] [address] [place] [address] [place] [address] PPO EPO PPO EPO Care Teams Hospital Television Rental Clerk Relationship Specialty Start Date End Date Yuriy Reaves MD [email or web address] PCP - General Internal Medicine 01/10/20 Samy Quintana MD Cushion Maker Nephrology 01/16/20 Additional Source Comments The information contained in this document represents components of the legal health record. It is not the complete legal health record.[facility]
== END 2025-01-20 08:45 | disposition home or self-care (01) ==
LOC: HO.HOSX 08:44
PROVIDERS: PCP Internal Medicine; Visit Provider Physician Assistant
DX: M54.50 Low back pain, unspecified (principal)
CPT/HCPCS: 72110

== ENCOUNTER → 2025-01-20 09:23 | Outpatient (BNV) | payer BC, SELFPAY | PROVIDERS: PCP Internal Medicine; Visit Provider Radiology Diagnostic Radiology | DX: M47.816 Spondylosis without myelopathy or radiculopathy, lumbar region (principal); M41.86 Other forms of scoliosis, lumbar region | CPT/HCPCS: 72110 ==

== ENCOUNTER 2025-03-02 09:29 | Outpatient (AMB) | payer BC, SELFPAY ==
[2025-03-02 09:34] VITALS: BMI 28.5
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
--- OUTSIDE RECORDS SUMMARY | 2025-03-02 13:05 | XMS_ITS | Encounter Summary ---
Author Organization [facility] Address [address] [place] [id number] Phone Care Team Providers Care Core Analyst Name Role Phone Dong Barry MD Primary Care Provider [phone] Samy Quintana MD Unavailable Encounter Details Date Type Department Care Team (Late st Contact Info) Description 06/18/2020 Procedure Pass [facility] Endoscopy Admitting Dept Virtual Department [address] [place] [address] Social History Tobacco Use Types Packs/Day Years [...] on filedocumented in this encounter Care Teams Core Analyst Relationship Specialty Start Date End Date Dong Barry MD PCP - General Internal Medicine 01/10/20 Samy Quintana MD Informatica Developer Nephrology 01/16/20 documented as of this encounter Additional Source Comments The information contained in this document represents components of the legal health record. It is not the complete legal health record.[facility]
--- OUTSIDE RECORDS SUMMARY | 2025-03-02 13:05 | XMS_ITS | Data Portability ---
Author Organization [place] [facility] [place] Address [address] [place] [address] Care Team Providers Care Stone Gluer Name Role Phone YURIY REAVES Primary Care [...] more view 2024 025 markel [facility], [address], [place] [address], [place], [address], 5 12:24:48 MR, arthrogr am, shoulder - LEFT SHOULDER MRI-MR arthrogr am to evaluate the subscapu latrice, supraspi natus and labrum. Left shoulder MR arthrogr amLittle gao call patient to schedule and hand carry CD 2024 025 che[place] [facility] ([facility]), [address], [place], [address], 08:29:32 Medication Orders None recorded . Patient TargetsNo targets recorded. Patient Instructions Encounter Date Encounter Id Patient Instructions Last Modified By Organization Details Last Modified Time 07/12/2024 [id number] Suggest ice, res t and NSAIDs as [...] jean baptiste Not available 07/12/2024 13:26:29 08/16/2024 [id number] Suggest ice, res t and NSAIDs as needed. cheyenne Not available 08/16/2024 08:29:59 Reason for Referral None Reported. Results Created Date Observation Date Name Description Value Unit Range Abnormal Flag Note LastModifiedBy Organization Detail LastModifiedTime 08/12/19 25 08/11/2024 jasmine HERNANDEZ , teresaul kendell No observ ation record ed. markel [facility] [address] [place] [address], [address], 08/12/2024 13:18:13 08/13/19 25 08/12/2024 MR arthdarrell osei , shoul kendell No observ ation record ed. [place] [facility] [address], [address], 08/16/2024 08:29:11 Result Notes None recorded. Procedures Surgical History Date Name Laterality Status Provider Name and Address Organization Details Recorded Time Shoulder Surgery completed Lolis FAGAN - [facility], 07/12/2024 13:17:05 Knee Surgery completed Lolis Mckeon [place] - [facility], 07/12/2024 13:17:22 Imaging Results None recorded. Procedure [...] Updated DateTime 07/12/2024 182.88 cm 28.5 kg/m2 44528.[address] [facility] 07/12/2024 13:15:02 Social History Question Answer Notes LastModified by Organizat [employer] Details LastModified Time Tobacco Smoking Status Never Smoker Lolis Mckeon null, [place] - [facility] 07/12/2024 13:16:52 Which Of Your Hands Is Dominant? Right [email or web address] Information not available 07/12/2024 Sex: Unknown Functional Status Question Answer Note LastModified by Organizat ion Details LastModified Time Do you use any illicit or recreational drugs? No Information not available 07/12/2024 Do you or have you ever used any other forms of tobacco or nicotine? No [email or web address] Information not available 07/12/2024 What is your level of alcohol consumption? None Information not available 07/12/2024 Mental Status None recorded. Family History Relationship Description Onset Age of this Age Resolved Age Notes LastModified by Organization Details LastModified Time Father No current problems or disability [email or web address] Not available 07/12 13:15:16 Mother No current problems or disability Not available 07/12 13:15:16 Medical History Condition Response Gout N Hyperthyroidism N COPD N Hypothyroidism N Cancer N Stroke N Liver Disease N Kidney Disease N Anemia N Osteopenia N Diabetes N Asthma N Reflux/GERD N Hypertension Y Osteoporosis N Past Encounters Encounter ID Performer Location Encounter Start Date Encounter Closed Date Diagnosis/Indication Diagnosis SNOMED-CT Code Diagnosis ICD10 Code Diagnosis IMO Codes Diagnosis Note [id number] MD EMILEE Martinez [place] [id number] 07/12/2024 12:58:35 07/12/2024 14:08:21 Pain of left shoulder joint 9507459164 6641984 M25.512 474633 History of operative procedure on shoulder 872640512 Z98.999 8120794 Traumatic left rotator cuff tear 8901219453 4355812 S46.012A [id number] MD EMILEE Martinez [place] [phone] 08/16/2024 15:42:58 08/16/2024 16:55:56 Pain of left shoulder joint 2133713384 7071104 M25.512 227973 History of operative procedure on shoulder 691546488 Z98.619 4986655 Traumatic left rotator cuff tear 4522279097 8676918 S46.012A 42336121 Health Concerns Section Related Observation LastModified by Organization Detai ls LastModified Time None Recorded Concern Status LastModified by Organization Details LastModified Time None Recorded Advance Directives Directive None Recorded Payers Insurance Date Sequence Insurance Name Policy Number Policy Davison Covered Member ID Davison Member ID Guarantor Name 08/13/2024 1 [place] [id number] Minerva Wallace Justin [id number] Yuriy Justin Notes Date Note Type Note Provider Name and Address Organization Details Recorded Time 07/12/2024 text/html Yuriy presents to the office today for a second opinion [...] his arm. 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 He went to a new physical therapist who was concerned with his range of motion. He saw the provider who told him there was nothing wrong with his arm. He underwent an MRI on 05/11/2024 at [facility]. He underwent a biceps tenotomy 3 weeks ago with some improvement. His pain is moderate and intermittent. On average, his pain is a 7 out of 10 and a 10 out of 10 at worst. His function and motion are limited. He notes numbness. He has tried rest, ice, heat, immobilization, non-weight bearing, formal PT, Advil and Oxycodone. 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 He notes a history of right biceps rupture. Kehinde Cagle MD [address], [place], [address], [place] [facility] 07/22/2024 09:48:02 08/16/2024 text/html Yuriy returns [...] repair. He underwent an MR arthrogram at [facility] on 08/11/2024. His pain is moderate and constant. On average, his pain is an 8 out of 10 and a 10 out of 10 at worst. His function and motion are limited. He notes numbness and tingling. He has tried rest, ice, bracing, heat, immobilization, formal PT, home exercises and Advil. Kehinde Cagle MD [address], [place], [address], [place] [facility] 08/16/2024 21:22:24
--- OUTSIDE RECORDS SUMMARY | 2025-03-02 13:05 | XMS_ITS | Clinical Summary ---
Author Organization [facility] Address [address] [facility] [address] [facility] [address] [place] [address] Phone Care Team Providers Care World Geography Teacher Name Role Phone Dong Barry MD Primary Care Provider [phone] Allergies No known active allergies Medications ascorbic [...] pain Immunizations Immunization Administration Dates Next Due EDMdesigner SARS-COV-2 09/21/2020,08/31/2020 Tdap 10/19/2019,04/21/2011 Family History Medical [...] Sigmoidoscopy 2019 Influenza Vaccine (#1) 2024 Insurance [facility] Care Teams World Geography Teacher Relationship Specialty Start Date End Date Dong Barry MD [address] [place] [phone] PCP - General 04/23/20
--- OUTSIDE RECORDS SUMMARY | 2025-03-02 13:06 | XMS_ITS | Encounter Summary ---
Author Organization [facility] Address [address] [place] [address] Phone Care Team Providers Care Preventive Maintenance Engineer Name Role Phone Dong Barry MD Primary Care Provider [phone] Samy Quintana MD Unavailable Encounter Details Date Type Department Care Team (Late st Contact Info) Description 04/17/2022 Procedure Pass OR Admitting Dept - Virtual Department [address] [place] [address] Social History Tobacco Use Types Packs/Day Years [...] on filedocumented in this encounter Care Teams Preventive Maintenance Engineer Relationship Specialty Start Date End Date Dong Barry MD PCP - General Internal Medicine 01/10/20 Samy Quintana MD Deck Scaler Nephrology 01/16/20 documented as of this encounter Additional Source Comments The information contained in this document represents components of the legal health record. It is not the complete legal health record.[facility]
--- OUTSIDE RECORDS SUMMARY | 2025-03-02 13:06 | XMS_ITS | Encounter Summary ---
Author Organization [facility] Address [address] [place] [address] Phone Care Team Providers Care Steel Inspector Name Role Phone Dong Barry MD Primary Care Provider [phone] Encounter Details Date Type Department Care Team (Late st Contact Info) Description 2022 Telephone [facility] [address] [place] [address] Samy Quintana MD [address] [place] [address] Social History Tobacco Use Types Packs/Day Years [...] further detail. Please call him back at [phone] Thank you documented in this encounter Plan of Treatment Not on file documented as of this encounter Visit Diagnoses Not on filedocumented in this encounter Care Teams Steel Inspector Relationship Specialty Start Date End Date Dong Barry MD [address] [place] [phone] PCP - General 04/23/20 documented as of this encounter
--- OUTSIDE RECORDS SUMMARY | 2025-03-02 13:06 | XMS_ITS | Clinical Summary ---
Author Organization [facility] Address [address] [facility] [address] [place] [address] Phone Care Team Providers Care Guest Advisor Name Role Phone Yuriy Reaves MD Primary Care Provider [phone] Samy Quintana MD Unavailable Allergies No known [...] (ZINC-220 ORAL) Take by mouth. Active omega 4-ezx-qer-fish oil 1,000 mg (120 mg-180 mg) Cap Take 1 capsule by mouth daily. Active Ca cit-D3-mag#11-z gln-kqtl-erx-abdifatah r (CALTRATE 600+D) 600 mg calcium- 800 [...] for nausea. 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 Low back pain 10/08/2012 Overview (06/03/2014): Low back pain Encounters Date Type Department Care Team Description 02/21/2025 3:00 PM EST Office Visit [facility] Department of Orthopaedic Surgery, Hand & Upper Extremity Service [address] [facility], [address] [place] [id number] Mariano Hernández MD Bilateral carpal tunnel syndrome (Primary Dx); Trigger middle finger of left hand from Last 3 Months Family History Medical History Relation Comments Coronary [...] patient's age to complete this topic IPV VACCINES Aged Out No longer eligi ble based on patient's age to complete this topic MENINGOCOCCAL VACCINES (ACWY) Aged Out No longer eligible based on patient's age to complete this topic MENINGOCOCCAL VACCINES (B) Aged Out N o longer eligible based on patient's age to complete this topic Medical Devices Implanted Type Area Calender Operator Helper Device Identifier Shelf Expiration Date Model / Serial / Lot Graft Mesh 10.5cm 16cm 3dmax Polypropylene Monofilament Patch Laparoscopy Hernia Repair Right - [id number] Implanted:Qty: 1 on 04/17/2022 by Julian Bettencourt MD at [facility] STANDARD Right: Inguinal [employer] [id number] 01/08/2027 [id number] / / [id number] Procedures Procedure Name Priority Date/Time Associated Diagnosis Comments ENDOSCOPY, COLON 06/18/2020 11:3 6 AM EST from Last 3 Months or Most Recently Relevant to Health Maintenance Results * ENDOSCOPY, COLON (06/18/2020 11:36 AM EST) Narrative Transcriptions Yuriy Chaudhary MD - 06/18/2020 11:36 AM EST Patient Name: Yuriy Lafleur Attending MD:: YURIY CHAUDHARY MD Procedure Date: 06/18/2020 11:36 AM Date of : 1970 Age: 50 Admit Type: Outpatient Gender: Male Room: [place] [address] Referring MD: YURIY REAVES MD Exam Type: [...] monitored continuously. The Olympus adult variable colonoscope [id number] #1was introduced through the anus and advanced [...] 11:36 AM Procedure Code(s): --- Professional --- 62777, Colonoscopy, flexible; diagnostic, including collection of specimen(s) by brushing or washing, when performed (separateprocedure) --- Technical --- 97873, Colonoscopy, flexible; diagnostic, including collection of specimen(s) by brushing or washing, when performed (separateprocedure) Diagnosis Code(s): --- Professional --- Z12.11, Encounter for screening for malignantneoplasm of colon --- Technical --- Z12.11, Encounter for screening for malignantneoplasm of colon CPT copyright 2018 [employer]. All rights reserved. The codes documented in this report are preliminary and upon assistant store director reviewmay be revised to meet current compliance requirements. Procedure Date: 06/18/2020 11:36:[address] [place] [address] Yuriy Reaves MD GI PROCEDURE ORDERABLES Final R esult from Last 3 Months or Most Recently Relevant to Health Maintenance Insurance [facility] [place] [address] [place] [address] PPO EPO Member Subscriber Plan / Payer (Ef fective 2020-Present) Name:Yuriy Lafleur Relation to Subscriber:Spouse Name:GABRIEL LAFLEUR Date of :1900 (Home) Address: [address] [place] [address] Payer ID:[id number] (NAIC) Type:PPO Address: [address] [place], [place] [address] [address] PPO EPO [place] [address] [place] [address] [address] [place] [address] PPO EPO Care Teams Guest Advisor Relationship Specialty Start Date End Date Yuriy Reaves MD [email or web address] PCP - General Internal Medicine 01/10/20 Samy Quintana MD Hospital Librarian Nephrology 01/16/20 Additional Source Comments The information contained in this document represents components of the legal health record. It is not the complete legal health record.[facility]
--- OUTSIDE RECORDS SUMMARY | 2025-03-02 13:06 | XMS_ITS | Encounter Summary ---
Author Organization [facility] Address [address] [place] [address] Phone Care Team Providers Care Motor Home Electrical Foreman Name Role Phone Dong Barry MD Primary Care Provider [phone] Encounter Details Date Type Department Care Team (Late st Contact Info) Description 07/08/2021 Telephone [facility] [address] [place] [address] Samy Quintana MD [address] [place] [address] Social History Tobacco Use Types Packs/Day Years [...] additional questions. Please call him back at [phone] Thank you documented in this encounter Plan of Treatment Not on file documented as of this encounter Visit Diagnoses Not on filedocumented in this encounter Care Teams Motor Home Electrical Foreman Relationship Specialty Start Date End Date Dong Barry MD [address] [place] [phone] PCP - General 04/23/20 documented as of this encounter
--- OUTSIDE RECORDS SUMMARY | 2025-03-02 13:07 | XMS_ITS | Encounter Summary ---
Author Organization [facility] Address [address] [facility] [address] [place] [address] Phone Care Team Providers Care Yard Clerk Name Role Phone Dong Barry MD Primary Care Provider [phone] Samy Quintana MD Unavailable Encounter Details Date Type Department Care Team (Late st Contact Info) Description 02/01/2024 Procedure Pass [facility] @ [place] [address] [place] [address] Social History Tobacco Use Types [...] on filedocumented in this encounter Care Teams Yard Clerk Relationship Specialty Start Date End Date Dong Barry MD [email or web address] PCP - General Internal Medicine 01/10/20 Samy Quintana MD Scientific Software Developer Nephrology 01/16/20 documented as of this encounter Additional Source Comments The information contained in this document represents components of the legal health record. It is not the complete legal health record.[facility]
--- OUTSIDE RECORDS SUMMARY | 2025-03-02 13:07 | XMS_ITS | Data Portability ---
Author Organization [facility] Basilio Ga [facility], [facility] Address [address] [place] [address] Care Team Providers Care Ell Tutor Name Role Phone YURIY REAVES Primary Care Provider Assessment Encounter Date Assessment Date Assessment LastModified by Organization Details LastModified Time 05/16/2024 05/16/2024 Dx:Left shoulder rotator cuff repair 11/17/23 Interval History:Larry returns, has been having some aching in the shoulder, MRI was done, images available for review. SocHx: nonsmoker, nondrinker Past Medical/Surgical History/Meds/Allerg ies reviewed and charted ROS: negative Physical Exam: afebrile, vital signs stable, in no apparent distress, oriented to person/place/time. Gait symmetric. Skin intact without erythema. Heart RRR Lungs: clear Abdomen soft, nontender. LeftSHOULDER: no redness, warmth, deformity. Range of motion full in all planes with no stiffness. Strength 5/5 all muscle groups. Apprehension negative. Impingement sign negative. Acromioclavicular joint nontender without irritability with cross body adduction. Neurovascular Exam wnl. Contralateral SHOULDER: no redness, warmth, deformity. Range of motion full in all planes with no stiffnes. Strength 5/5 all muscle groups. Apprehension negative. Impingement sign negative. Acromioclavicular joint nontender without irritability to cross body adduction. Neurovascular Exam wnl. New Studies: MRI images reviewed from 05/11/24. The scan shows the repair to be intact, no signs of re tear, essentially 100% healing. Impression:Status post left rotator cuff repair Plan: 1.Patient reassured, massive tear so I recommended continued restriction no lifting over 10 pounds, follow-up with us for recheck in 3 months. [facility] speech recognition community organization aide software was used to create portions of this document. An attempt at proofreading has been made to minimize errors. Please call for corrections. Not available 05/16/2024 13:40:59 06/06/2024 06/06/2024 Dx:left shoulder subluxated biceps, symptomatic Interval History:the patient returns, notes ongoing pain, crepitus and popping along the course of his long head biceps, 6 months out from repair of a massive rotator cuff tear. MRI shows subluxation of the biceps from its groove, rotator cuff repair intact. SocHx: nonsmoker, nondrinker Past Medical/Surgical History/Meds/Allerg ies reviewed and charted ROS: negative Physical Exam: afebrile, vital signs stable, in no apparent distress, oriented to person/place/time. Gait symmetric. Skin intact without erythema. Heart RRR Lungs: clear Abdomen soft, nontender. leftSHOULDER: no redness, warmth, deformity. Range of motion full in all planes with no stiffness. Strength 5/5 all muscle groups. Apprehension negative. Impingement sign negative. Acromioclavicular joint nontender without irritability with cross body adduction. Neurovascular Exam wnl.tender in the biceps groove Contralateral SHOULDER: no redness, warmth, deformity. Range of motion full in all planes with no stiffnes. Strength 5/5 all muscle groups. Apprehension negative. Impingement sign negative. Acromioclavicular joint nontender without irritability to cross body adduction. Neurovascular Exam wnl. New Studies: MRI images reviewed Impression:status post rotator cuff repair with symptomatic long head biceps subluxation Plan: 1.we had a long discussion about options for treatment.he is bothered by the symptomatology and tells me he cannot do his job well with his ongoing pain and mechanical symptoms. I recommended biceps tenotomy to minimize downtime, understands there will be a deformity which he has in the other shoulder and is totally comfortable with this. Detailed discussion regarding the patient s pathoanatomy and treatment options conducted. The risks and benefits, potential complications including but not limited to failure to alleviate all pain, need for further surgery, infection, need for hardware implantation, stiffness, bleeding, neurovascular injury discussed in detail. I advised the patient that symptom resolution after this procedure is often protracted, and may be incomplete. I explained that, as an end result, permanent functional limitations may be recommended. All questions have been answered to their satisfaction, and I believe the patient has made an informed decision to proceed with surgery. . [facility] speech recognition community organization aide software was used to create portions of this document. An attempt at proofreading has been made to minimize errors. Please call for corrections. Not available 06/06/2024 12:00:06 06/13/2024 06/13/2024 Assessment: Kary ent presents with signs and symptoms that are consistent with shoulder LHB tenotomy, including localized pain, limitations in motion impacting functional activities involving reaching, and decreased strength for performing ADL's. Plan: Continued PT is recommended at 2x/week for 6 weeks to decrease pain, improve ROM, increase strength, and optimize shoulder mechanics for functional ADL's. [email or web address] Not available 06/12/2024 08:33:42 09/02/2024 09/02/2024 Dx:Left biceps tenotomy 05/20/24 Interval History:Still having pain, coming along slowly but quite functional. SocHx: nonsmoker, nondrinker Past Medical/Surgical History/Meds/Allerg ies reviewed and charted ROS: negative Physical Exam: afebrile, vital signs stable, in no apparent distress, oriented to person/place/time. Gait symmetric. Skin intact without erythema. Heart RRR Lungs: clear Abdomen soft, nontender. LeftSHOULDER: no redness, warmth, deformity. Range of motion full in all planes with no stiffness. Strength 5/5 all muscle groups. Apprehension negative. Impingement sign negative. Acromioclavicular joint nontender without irritability with cross body adduction. Neurovascular Exam wnl. Contralateral SHOULDER: no redness, warmth, deformity. Range of motion full in all planes with no stiffnes. Strength 5/5 all muscle groups. Apprehension negative. Impingement sign negative. Acromioclavicular joint nontender without irritability to cross body adduction. Neurovascular Exam wnl. New Studies: none Impression:Status post left shoulder surgery Plan: 1.Continue use to tolerance, long-term good prognosis discusssed, follow-up with [facility] speech recognition community organization aide software was used to create portions of this document. An attempt at proofreading has been made to minimize errors. Please call for corrections. Not available 09/02/2024 13:25:23 Plan of Treatment Reminders Order Date Submit Date Provider Last Modified By Organization Details Last Modified Time Details Appointments None record ed. Lab None record ed. Referral None record ed. Procedures None record ed. Surgeries None record ed. Imaging None record ed. Medication Orders None record ed. Patient TargetsNo targets recorded. Patient InstructionsNo instructions recorded. Reason for Referral None Reported. Results Created Date Observation Date Name Description Value Unit Range Abnormal Flag Note LastModifiedBy Organization Detail LastModifiedTime 05/04/1905/04/2024 XR, wrist , 3 or more view http:/ [email or web address] ?Encry pted=s hAaTro YD8dLq bEUv6g %2BXZw aYqtaq 0bqfl% 2Fg9IQ a4ajBk vP9nXo QUaueC m3YtLR FvZlgJ JJ8mAn HZtai3 [id number] AC0Kqb 3qNWKS uKiQtr MwF INTERFACE [employer] [facility] [address] [facility] [address], [place], [address], 05/04/2024 12:36:01 05/04/19 25 05/04/2024 XR, wrist , 3 or more view [email or web address]:/ [email or web address] ?Encry pted=s hAaTro YD8dLq bEUv6g %2BXZw aYqtaq 0bqfl% 2Fg9IQ a4ajBk vP9nXo QUaueC m3YtLR FvZlgJ JJ8mAn HZtai3 0b1585 AC0Kqb 3qNWKS uKiQtr MwF INTERFACE [employer] [address] [facility] [address], [place], [address], 05/04/2024 12:36:04 05/12/19 25 05/11/2024 MRI, genoveva rdz, w/o contr ast [facility] Access ion Number : [id number] Patien t Name: Yuriy Turner Record Number : [id number] Date of : 1969 Date of Exam: 2024 Referr gino Physic keron: Honorio dallas, Bright FISHER [address] [facility] [place] [address] Exam: MR Should er (C-) CPT 86515 - Left Room Descri ption: Harding GE Pion 3T Should er MRI left Clinic al Histor y: Pain Compar yessenia: 024 Findin gs: Mild acromi oclavi cular osteoa rthrit is with capsul ar hypert rophy. Eviden ce of prior subacr omial decomp ressio n. Subacr omial high T2 signal may be granul ation tissue status post surger y. Status post rotato r cuff repair . No eviden ce of recurr ent full-t hickne ss rotato r cuff tear. Possib le low-gr matthew partia l articu lar surfac e tear within latera l outlet fibers of the supras pinatu s tendon on image 15 of series 3. This could also be relate d to the previo us tear and surger y and not repres ent a new partia l tear. Additi onal interm ediate T2 signal and thicke aura throug hout the remain kendell of the supras pinatu s and infras pinatu s tendon fibers may be due to a combin ation of tendin opathy and postsu rgical change . The teres minor tendon is intact . Interm ediate T2 signal within attenu ated distal subsca pulari s tendon fibers may be due to a combin ation of tendin opathy and postsu rgical change . No eviden ce of recurr ent full-t hickne ss subsca pulari s tear The long head of the biceps tendon is medial ly disloc ated from the bicipi torsten groove . Assisted Living Coordinator ior-mcdonald perior , slot shift manager ior and slot shift manager ior-in ferior labral tear. Interm ediate T2 signal within a thicke nir inferi or glenoh umeral ligame nt. Impres renee: Long head of the biceps tendon is medial ly disloc ated from the bicipi torsten groove No eviden ce of recurr ent full-t hickne ss rotato r cuff tear. Possib le low-gr matthew partia l articu lar surfac e tear within latera l outlet fibers of the supras pinatu s tendon on the image outlin ed above. This findin g could also be relate d to the previo us tear and surger y and not repres ent a new partia l tear Additi onal interm ediate T2 signal and thicke aura throug hout the remain ing supras pinatu s and infras pinatu s tendon fibers is likely due to a combin ation of postsu rgical change and tendin opathy . Interm ediate T2 signal within attenu ated distal subsca pulari s tendon fibers may be due to a combin ation of tendin opathy and postsu rgical change . Assisted Living Coordinator ior-mcdonald perior , slot shift manager ior and slot shift manager ior-in ferior labral tear Interm ediate T2 signal within a thicke nir inferi or glenoh umeral ligame nt. Findin g can be seen with synovi tis and adhesi ve capsul itis. Electr onical ly Signed By: Isha Pop MD [email or web address] [facility] ([facility] [address] [facility], [place], [address], 05/18/2024 10:41:18 05/12/19 25 03/25/2024 MRI, hand, w/o contr ast No observ ation record ed. [email or web address] Not Available 16:50:58 Result Notes None recorded. Procedures Surgical History Date Name Laterality Status Provider Name and Address Organization Details Recorded Time 5 36228 Therapeutic Exercise (1:1) completed Davi Tompkins, PT [address], [place], [address], [facility] 06/12/2024 08:32:48 5 35469: PT re-eval completed Davi Tompkins, PT [address], [place], [address], [facility] 07/07/2024 12:15:26 5 JZWrist Joint Inj Celestone completed Valentin Branham MD [address], [place], [address], [facility] 05/09/2024 07:11:17 4 21337 Therapeutic Exercise (1:1) completed Radames Scafuri, LEPIDOPTERIST [address], [place], [address], [facility] 03/31/2024 16:20:52 4 57959: Manual therapy completed Radames Scafuri, LEPIDOPTERIST [address], [place], [address], [facility] 03/31/2024 16:20:52 4 56819 Therapeutic Exercise (1:1) completed Radames Scafuri, LEPIDOPTERIST [address], [place], [address], [facility] 03/22/2024 15:04:23 4 08745: Manual therapy completed Radames Scafuri, LEPIDOPTERIST [address], [place], [address], [facility] 03/22/2024 15:04:23 4 51198 Therapeutic Exercise (1:1) completed Radames Scafuri, LEPIDOPTERIST [address], [place], [address], [facility] 03/08/2024 14:35:12 4 89117: Manual therapy completed Raadmes Scafuri, LEPIDOPTERIST [address], [place], [address], [facility] 03/08/2024 14:33:00 4 44599 Therapeutic Exercise (1:1) completed Radames Scafuri, LEPIDOPTERIST [address], [place], [address], [facility] 03/03/2024 14:55:03 4 74634: Manual therapy completed Radames Scafuri, LEPIDOPTERIST [address], [place], [address], [facility] 03/03/2024 14:55:03 4 34962 Therapeutic Exercise (1:1) completed Radames Scafuri, LEPIDOPTERIST [address], [place], [address], [facility] 03/01/2024 16:43:23 4 91357: Manual therapy completed Radames Scafuri, LEPIDOPTERIST [address], [place], [address], [facility] 03/01/2024 16:43:23 4 98854 Therapeutic Exercise (1:1) completed Radames Scafuri, LEPIDOPTERIST [address], [place], [address], [facility] 02/23/2024 15:08:29 4 14864: Manual therapy completed Radames Scafuri, LEPIDOPTERIST [address], [place], [address], [facility] 02/23/2024 15:08:29 4 64855 Therapeutic Exercise (1:1) completed Radames Scafuri, LEPIDOPTERIST [address], [place], [address], [facility] 02/18/2024 15:07:51 4 22830: Manual therapy completed Radames Scafuri, LEPIDOPTERIST [address], [place], [address], [facility] 02/18/2024 15:07:51 4 39507 Therapeutic Exercise (1:1) completed Radames Scafuri, LEPIDOPTERIST [address], [place], [address], [facility] 02/16/2024 15:35:17 4 71830: Manual therapy completed Radames Scafuri, LEPIDOPTERIST [address], [place], [address], [facility] 02/16/2024 15:34:17 22720 Therapeutic Exercise (1:1) completed Davi Tompkins, PT [address], [place], [address], [facility] 02/10/2024 11:29:55 42425: Manual therapy completed Davi Tompkins, PT [address], [place], [address], [facility] 02/10/2024 11:29:55 [id number] Therapeutic Exercise (1:1) completed Davi Tompkins, PT [address], [place], [address], [facility] 02/09/2024 06:42:25 82128: Manual therapy completed Davi Tompkins, PT [address], [place], [address], [facility] 02/09/2024 06:42:25 94424 Therapeutic Exercise (1:1) completed Radames Mendez, LEPIDOPTERIST [address], [place], [address], [facility] 02/04/2024 14:10:53 97097: Manual therapy completed Radames Mendez, LEPIDOPTERIST [address], [place], [address], [facility] 02/04/2024 14:10:53 48447 Therapeutic Exercise (1:1) completed Radames Mendez, LEPIDOPTERIST [address], [place], [address], [facility] 2024 14:03:06 65340: Manual therapy completed Radames Trinhri, LEPIDOPTERIST [address], [place], [address], [facility] 2024 14:03:06 37377 Therapeutic Exercise (1:1) completed Radames Scafuri, LEPIDOPTERIST [address], [place], [address], [facility] 01/26/2024 15:00:52 38006: Manual therapy completed Radames Castillofuri, LEPIDOPTERIST [address], [place], [address], [facility] 01/26/2024 15:00:52 82298 Therapeutic Exercise (1:1) completed Radames Scafuri, LEPIDOPTERIST [address], [place], [address], [facility] 01/21/2024 14:45:53 38814: Manual therapy completed Radames Mendez, LEPIDOPTERIST [address], [place], [address], [facility] 01/21/2024 14:45:53 64983 Therapeutic Exercise (1:1) completed Rdaames Trinhri, LEPIDOPTERIST [address], [place], [address], [facility] 01/19/2024 14:19:12 83672: Manual therapy completed Radames Trinhri, LEPIDOPTERIST [address], [place], [address], [facility] 01/19/2024 14:19:12 07408 Therapeutic Exercise (1:1) completed Davi Tompkins, PT [address], [place], [address], [facility] 01/13/2024 14:23:23 70595: Manual therapy completed Davi Tompkins, PT [address], [place], [address], [facility] 01/13/2024 14:23:23 77801 Therapeutic Exercise (1:1) completed Radames Scafuri, LEPIDOPTERIST [address], [place], [address], [facility] 01/12/2024 14:25:32 4 62493: Manual therapy completed Radames Scafuri, LEPIDOPTERIST [address], [place], [address], [facility] 01/12/2024 14:25:32 4 03272 Therapeutic Exercise (1:1) completed Radames Scafuri, LEPIDOPTERIST [address], [place], [address], [facility] 01/07/2024 14:16:08 4 37529: Manual therapy completed Radames Scafuri, LEPIDOPTERIST [address], [place], [address], [facility] 01/07/2024 14:16:08 4 38852 Therapeutic Exercise (1:1) completed Radames Scafuri, LEPIDOPTERIST [address], [place], [address], [facility] 01/05/2024 13:57:23 4 46674: Manual therapy completed Radames Chongfuri, LEPIDOPTERIST [address], [place], [address], [facility] 01/05/2024 13:57:23 4 93292 Therapeutic Exercise (1:1) completed Radames Scafuri, LEPIDOPTERIST [address], [place], [address], [facility] 12/31/2023 15:07:05 4 83981: Manual therapy completed Radames Scafuri, LEPIDOPTERIST [address], [place], [address], [facility] 12/31/2023 15:07:05 4 18579 Therapeutic Exercise (1:1) completed Radames Scafuri, LEPIDOPTERIST [address], [place], [address], [facility] 12/29/2023 15:08:56 4 33095: Manual therapy completed Radames Scafuri, LEPIDOPTERIST [address], [place], [address], [facility] 12/29/2023 15:08:56 4 33156 Therapeutic Exercise (1:1) completed Davi Tompkins, PT [address], [place], [address], [facility] 12/23/2023 16:33:44 4 89688: Manual therapy completed Davi Tompkins, PT [address], [place], [address], [facility] 12/23/2023 16:33:44 4 75412 Therapeutic Exercise (1:1) completed Radames Scafuri, LEPIDOPTERIST [address], [place], [address], [facility] 12/22/2023 16:24:44 4 82408: Manual therapy completed Radames Scafuri, LEPIDOPTERIST [address], [place], [address], [facility] 12/22/2023 16:24:44 4 24050 Therapeutic Exercise (1:1) completed Radames Scafuri, LEPIDOPTERIST [address], [place], [address], [facility] 12/17/2023 13:48:42 4 81389: Manual therapy completed Radames Scafuri, LEPIDOPTERIST [address], [place], [address], [facility] 12/17/2023 13:48:42 4 21322 Therapeutic Exercise (1:1) completed Radames Scafuri, LEPIDOPTERIST [address], [place], [address], [facility] 12/15/2023 13:40:52 4 63076: Manual therapy completed Radames Scafuri, LEPIDOPTERIST [address], [place], [address], [facility] 12/15/2023 13:38:49 4 63836 Therapeutic Exercise (1:1) completed Radames Mendez, LEPIDOPTERIST [address], [place], [address], [facility] 12/10/2023 15:14:52 4 67399: Manual therapy completed Radames Mendez, LEPIDOPTERIST [address], [place], [address], [facility] 12/10/2023 15:14:52 4 50513 Therapeutic Exercise (1:1) completed Radames Mendez, LEPIDOPTERIST [address], [place], [address], [facility] 12/08/2023 15:01:43 4 70912: Manual therapy completed Rdaames Mnedez, LEPIDOPTERIST [address], [place], [address], [facility] 12/08/2023 15:03:06 4 83746 Therapeutic Exercise (1:1) completed Davi Tompkins, PT [address], [place], [address], [facility] 11/24/2023 14:17:08 4 33479: Low complexity PT Eval completed Davi Tompkins, PT [address], [place], [address], [facility] 11/24/2023 14:17:13 4 Carpal Tunnel Kenalog 1cc injection, L/R completed Josephine Rich PA-C [address], [place], [address], [facility] 10/08/2023 16:20:39 4 Sports Shoulder completed Kenny Torres PA-C [address], [place], [address], [facility] 07/20/2023 18:02:23 4 Carpal Tunnel Kenalog 1cc injection, L/R completed Josephine Rich PA-C [address], [place], [address], [facility] 07/14/2023 16:29:30 Imaging Results None recorded. Procedure Notes None recorded. Medical Equipment None Reported. Allergies No known drug allergies Medications Name Sig Start Date Stop Date Status Note LastModified by Organization Details LastModified Time losartan 50 mg tablet TAKE 1 TABLET BY MOUTH TWICE A DAY active Not Available Not Available No t Available desonide 0.05 % topical cream TAKE 1 FILM (TOPICAL) 2 TIMES PER DAY FOR 14 DAYS 01/07 completed Not Available Not Available Not Available sildenafil 50 mg tablet TAKE 1 TABLET NEEDED FOR SEXUAL ACTIVITY 01/07 completed Not Available Not Available Not Available fluorouraci l 5 % topical cream PLEASE SEE ATTACHED FOR DETAILED DIRECTION S active Not Available Not Available No t Available prednisone 5 mg tablet PLEASE SEE ATTACHED FOR DETAILED DIRECTION S 10/07 completed Not Available Not Available Not Available naproxen 250 mg tablet active Not Available Not Available Not Available loteprednol etabonate 0.2 % eye drops,suspe nsion INSTILL 1 DROP INTO AFFECTED EYE(S) BY OPHTHALMI C ROUTE 2 TO 4 TIMES PER DAY active Not Available Not Available No t Available prednisone 10 mg tablets in a dose pack Take 1 dose pk by oral route as directed. 09/14 completed Not Available Not Available Not Available ciclopirox 8 % topical solution APPLY 1 APPLICATI ON TO NAILS DAILY REMOVE ONCE A WEEK WITH RUBBING ALCOHOL active Not Available Not Available No t Available terbinafine HCl 250 mg tablet TAKE 1 TABLET BY MOUTH EVERY DAY active Not Available Not Available No t Available desonide 0.05 % topical ointment APPLY SPARINGLY TO EYELIDS TWICE A DAY X2 WKS ON, 1 WK OFF NEEDED active Not Available Not Available No t Available pseudoephed rine-guaife nesin ER 80-700 mg tablet,exte nded release 1-2 Q 4-6 Hours Prn 06/04 completed Statu s: 'Disc ontin ued'; Not Available Not Available Not Available tacrolimus 0.03 % topical ointment APPLY TO AFFECTED AREA AROUND EYE ONCE DAILY. active Not Available Not Available No t Available zolpidem 10 mg tablet TAKE 1 TABLET EVERY DAY BY ORAL ROUTE NEEDED. active Not Available Not Available No t Available ondansetron 4 mg disintegrat ing tablet TAKE 1 TABLET BY MOUTH EVERY 8 HOURS NEEDED FOR NAUSEA/VO MITING 01/07 completed Not Available Not Available Not Available losartan 100 mg tablet TAKE 1 TABLET BY MOUTH EVERY DAY FOR 90 DAYS active Not Available Not Available No t Available loratadine 10 mg tablet TAKE 1 TABLET BY MOUTH TWICE A DAY active Not Available Not Available No t Available amoxicillin 875 mg-potassiu m clavulanate 125 mg tablet TAKE 1 TABLET BY MOUTH TWICE A DAY FOR 10 DAYS 09/14 completed Not Available Not Available Not Available oxycodone 5 mg tablet TAKE 1 TABLET BY MOUTH EVERY 4-6 HOURS NEEDED FOR POSTOPERA TIVE PAIN FOR 5 DAYS active Not Available Not Available No t Available tadalafil 5 mg tablet TAKE 1 TABLET BY MOUTH DAILY active Not Available Not Available No t Available Vitals Date Recorded Body height Body mass index (BMI) Body weight Provider Name and Address Organization Details Last Updated DateTime 05/16/2024 182.88 cm 27.1 kg/m2 95191.47 g ALVAREZ CLARK [facility] 05/16/2024 13:10:10 Date Recorded Body height Body mass index (BMI) Body weight Provider Name and Address Organization Details Last Updated DateTime 06/06/2024 182.88 cm 27.1 kg/m2 73047.47 g ALVAREZ CLARK [facility] 06/06/2024 09:39:10 Date Recorded Body height Body mass index (BMI) Body weight Body temperature Provider Name and Address Organization Details Last Updated DateTime 06/16/2024 182.88 cm 27.1 kg/m2 43102.47 g 98.2 [degF] Ignacia Singh [facility] 06/16/2024 13:48:22 Date Recorded Body height Body mass index (BMI) Body weight Provider Name and Address Organization Details Last Updated DateTime 09/02/2024 182.88 cm 27.1 kg/m2 55237.47 g ALVAREZ CLARK [facility] 09/02/2024 12:37:10 Social History None recorded. Functional Status None recorded. Mental Status None recorded. Family History Nothing Reported. Medical History Condition Response Allergies/Hayfever N Coronary Artery Disease N Anxiety/Depression N Breathing or lung disorders N Emphysema N Nerve Disorders N Thyroid Problems N COPD N Pacemaker N Anemia N Kidney/Bladder Problems N Vascular Disease N Heart Trouble N Heart Attack ([place]) N Gastrointestinal Disease N Cholesterol N Diabetes N Autoimmune disease N Bleeding Disorder N Inflammatory Joint disease N Orthotics N Arthritis N Seizures/Epilepsy N Blood Clot N AIDS/HIV N Congestive Heart Failure (CHF) N Acid Reflux (GERD) N Cancer N Stroke N Asthma N Circulation Problems N Peripheral Vascular Disease N Sleep Apnea N Hepatitis N Heart Disease N Rheumatoid Arthritis N Arrhythmia N Pulmonary Embolism N Headaches N Fibromyalgia N Hypertension Y Osteoporosis N Past Encounters Encounter ID Performer Location Encounter Start Date Encounter Closed Date Diagnosis/Indication Diagnosis SNOMED-CT Code Diagnosis ICD10 Code Diagnosis IMO Codes Diagnosis Note [id number] GIANNI Rai [address] [place] [address] 07/13/2023 09:58:31 08/02/2023 08:03:26 Carpal tunnel syndrome of right wrist 8939989957 62430 G56.01 [id number] GIANNI Rai [address] [place] [address] 07/14/2023 16:04:21 08/03/2023 10:55:50 Carpal tunnel syndrome of right wrist 8811813212 37232 G56.01 [id number] GIANNI Wylie [address] [place] [address] 07/20/2023 09:43:25 07/21/2023 11:46:52 Pain of left shoulder joint 6028358783 0462509 M25.512 Tendinosis of left biceps brachii 6926062255 7521554 M67.694 [id number] GIANNI Wylie [address] [place] [address] 08/27/2023 15:41:55 08/27/2023 17:24:08 Pain of left shoulder joint 3427985532 5631321 M25.512 Rupture of rotator cuff of right shoulder 1240226350 9360031 M75.101 Right rota tor cuff strain 0950403936 1415386 S46.011A [id number] GIANNI Quintero [address] [place] [address] 09/03/2023 15:08:24 09/22/2023 08:39:13 Injury of hand 155753692 S69.91XA Closed fra cture finger distal phalanx, mallet 273596818 S62.632A [id number] GIANNI [facility] [address] [place] [address] 09/15/2023 08:02:31 09/15/2023 09:03:32 Full thickness rotator cuff tear 109033580 M75.457 [id number] MD Bravo Gamaniradha [address] [place] [address] 09/23/2023 14:57:47 10/23/2023 08:53:58 Pain in finger of right hand 9233496221 83088 M79.644 Mallet fin mikel of right hand 8524163642 52839 M20.010 [id number] GIANNI Rai [address] [place] [address] 10/08/2023 15:44:20 10/28/2023 12:17:22 Pain in finger of right hand 0840192724 12067 M79.557 [id number] MD Krupa Resendez [address] [place] [address] 10/19/2023 14:58:30 11/04/2023 08:39:02 Pain of left shoulder joint 1683523256 5424211 M25.954 [id number] GIANNI Rai [address] [place] [address] 11/06/2023 15:49:43 11/26/2023 15:36:20 Pain of right hand 5055007175 54720 M79.299 [id number] Davi Tompkins, PT [facility] [address] [place] [address] 11/24/2023 14:26:17 11/24/2023 15:46:12 Rupture of rotator cuff of left shoulder 8540825955 [id number] M75.915 [id number] GIANNI Wyliee [address] [place] [address] 11/26/2023 08:35:56 11/26/2023 09:35:11 Rupture of rotator cuff of left shoulder 6741412300 [id number] M75.509 [id number] Radames Trinhri, LEPIDOPTERIST [facility] [address] [place] [address] 12/08/2023 12:36:36 12/08/2023 13:17:19 Rupture of rotator cuff of left shoulder 6714607007 [id number] M75.293 [id number] Radames Trinhri, LEPIDOPTERIST [facility] [address] [place] [address] 12/10/2023 12:37:03 12/10/2023 14:06:58 Rupture of rotator cuff of left shoulder 5281396601 [id number] M75.304 [id number] Radames Trinhri, LEPIDOPTERIST [facility] [address] [place] [address] 12/15/2023 12:38:51 12/15/2023 13:13:37 Rupture of rotator cuff of left shoulder 3116386405 [id number] M75.857 [id number] Radames Trinhri, LEPIDOPTERIST [facility] [address] [place] [address] 12/17/2023 12:36:28 12/17/2023 13:20:05 Rupture of rotator cuff of left shoulder 8789014464 [id number] M75.849 [id number] Radames Trinhri, LEPIDOPTERIST [facility] [address] [place] [address] 12/22/2023 12:45:14 12/22/2023 13:19:59 Rupture of rotator cuff of left shoulder 4935837798 [id number] M75.729 [id number] Davi Turner, PT [facility] [address] [place] [address] 12/24/2023 13:30:50 12/24/2023 14:32:09 Rupture of rotator cuff of left shoulder 8612286805 [id number] M75.403 [id number] Radames Mendez, LEPIDOPTERIST [facility] [address] [place] [address] 12/29/2023 12:30:22 12/29/2023 13:09:19 Rupture of rotator cuff of left shoulder 9862382590 [id number] M75.513 [id number] Radames Mendez, LEPIDOPTERIST [facility] [address] [place] [address] 12/31/2023 12:31:49 12/31/2023 15:14:03 Rupture of rotator cuff of left shoulder 9469336494 [id number] M75.856 [id number] Radames Mendez, LEPIDOPTERIST [facility] [address] [place] [address] 01/05/2024 12:29:13 01/05/2024 14:02:50 Rupture of rotator cuff of left shoulder 8386246398 [id number] M75.413 [id number] Radames Mendez, LEPIDOPTERIST [facility] [address] [place] [address] 01/07/2024 12:27:04 01/07/2024 13:26:24 Rupture of rotator cuff of left shoulder 6077173155 [id number] M75.250 [id number] Kenny Torres PA-C [facility] [address] [place] [address] 01/08/2024 12:52:53 01/08/2024 13:14:51 Full thickness rotator cuff tear 199422694 M75.348 [id number] Radames Trinhri, LEPIDOPTERIST [facility] [address] [place] [address] 01/12/2024 12:29:13 01/12/2024 13:10:45 Rupture of rotator cuff of left shoulder 2353649182 [id number] M75.605 [id number] Davi Tompkins, PT [facility] [address] [place] [address] 01/14/2024 13:08:38 01/14/2024 15:07:32 Rupture of rotator cuff of left shoulder 6853015416 [id number] M75.153 [id number] Radames Mendez, LEPIDOPTERIST [facility] [address] [place] [address] 01/19/2024 12:33:38 01/19/2024 13:14:30 Rupture of rotator cuff of left shoulder 2342810187 [id number] M75.866 [id number] Radames Mendez, LEPIDOPTERIST [facility] [address] [place] [address] 01/21/2024 12:30:51 01/21/2024 13:35:46 Rupture of rotator cuff of left shoulder 7072127164 [id number] M75.763 [id number] Radames Mendez, LEPIDOPTERIST [facility] [address] [place] [address] 01/26/2024 12:28:27 01/26/2024 13:49:10 Rupture of rotator cuff of left shoulder 2629052498 [id number] M75.492 [id number] Radames Mendez, LEPIDOPTERIST [facility] [address] [place] [address] 2024 12:31:12 2024 14:24:02 Rupture of rotator cuff of left shoulder 4720234149 7650506 M75.979 [id number] Radames Mendez, LEPIDOPTERIST [facility] [address] [place] [address] 02/04/2024 12:30:33 02/04/2024 13:51:00 Rupture of rotator cuff of left shoulder 9451494050 [id number] M75.157 [id number] Davi Tompkins, PT [facility] [address] [place] [address] 02/09/2024 12:32:50 02/09/2024 14:16:33 Rupture of rotator cuff of left shoulder 5174176005 [id number] M75.647 [id number] Davi Tompkins, PT [facility] [address] [place] [address] 02/11/2024 12:30:18 02/11/2024 12:57:59 Rupture of rotator cuff of left shoulder 4595266298 [id number] M75.982 [id number] Radames Mendez, LEPIDOPTERIST [facility] [address] [place] [address] 02/16/2024 12:32:12 02/16/2024 13:15:04 Rupture of rotator cuff of left shoulder 3272676947 [id number] M75.882 [id number] Radames Mendez, LEPIDOPTERIST [facility] [address] [place] [address] 02/18/2024 12:31:25 02/18/2024 13:45:17 Rupture of rotator cuff of left shoulder 6078898290 [id number] M75.308 [id number] Radames Mendez, LEPIDOPTERIST [facility] [address] [place] [address] 02/23/2024 12:30:12 02/23/2024 13:03:56 Rupture of rotator cuff of left shoulder 4470969919 [id number] M75.676 [id number] Radames Mendez, LEPIDOPTERIST [facility] [address] [place] [address] 03/01/2024 12:28:47 03/01/2024 13:11:01 Rupture of rotator cuff of left shoulder 2676389732 [id number] M75.003 [id number] Radames Mendez, LEPIDOPTERIST [facility] [address] [place] [address] 03/03/2024 12:29:24 03/03/2024 13:03:55 Rupture of rotator cuff of left shoulder 9501138921 [id number] M75.247 [id number] Radames Mendez, LEPIDOPTERIST [facility] [address] [place] [address] 03/08/2024 12:34:12 03/08/2024 13:19:42 Rupture of rotator cuff of left shoulder 8718994283 [id number] M75.072 [id number] Bright Linares MD [facility] [address] [place] [address] 03/09/2024 15:03:14 03/31/2024 14:40:04 Nontraumatic complete rupture of rotator cuff of left shoulder 0622064611 501857 M75.122 [id number] Radames Mendez, LEPIDOPTERIST [facility] [address] [place] [address] 03/22/2024 12:28:56 03/22/2024 13:34:29 Rupture of rotator cuff of left shoulder 1107549546 [id number] M75.657 [id number] Radames Mendez, LEPIDOPTERIST [facility] [address] [place] [address] 03/31/2024 12:28:46 03/31/2024 14:37:52 Rupture of rotator cuff of left shoulder 7667296041 [id number] M75.781 [id number] MD MALIK Dent [address] [place] [address] 05/04/2024 11:34:11 05/18/2024 12:09:23 Pain in finger of right hand 3681025673 68400 M79.644 [id number] Pain of right wrist 3169 687356 50854 M25.531 [id number] Tear of tr iangular fibrocartilage complex of right wrist 0426642221 S63.591A [id number] Flexor ten osynovitis of finger 325927428 M65.949 [id number] MD MALIK Resendez [address] [address] [place] [address] 05/16/2024 13:06:30 05/24/2024 09:22:27 Traumatic left rotator cuff tear 2808275574 3884728 S46.012D 541997829 [id number] MD MALIK Resendez [address] [place] [address] 06/06/2024 09:29:03 06/16/2024 11:43:47 Nontraumatic complete rupture of rotator cuff of left shoulder 2963106716 355467 M75.122 [id number] Davi Tompkins, PT MAL[facility] - [facility] [address] [place] [address] 06/13/2024 13:28:15 06/13/2024 14:02:01 Impingement syndrome of left shoulder region 6290692694 70452 M75.42 [id number] GIANNI Wyl[facility] - [facility] [address] [place] [address] 06/16/2024 13:26:48 07/04/2024 18:53:09 Tendinosis of left biceps brachii 7810706815 0659946 M67.814 [id number] MD MALIK Resendez [facility] [address] [place] [address] 09/02/2024 12:26:17 09/12/2024 15:49:18 Traumatic left rotator cuff tear 0893950384 [id number] S46.012D [id number] Health Concerns Section Related Observation LastModified by Organization Detai ls LastModified Time None Recorded Concern Status LastModified by Organization Details LastModified Time None Recorded Advance Directives Directive None Recorded Payers Insurance Date Sequence Insurance Name Policy Number Policy Davison Covered Member ID Davison Member ID Guarantor Name 03/09/2024 [employer] Yuriy Anderson 09/12/2024 1 [place] [id number] Minerva Wallace Justin [id number] Yuriy Anderson Notes Date Note Type Note Provider Name and Address Organization Details Recorded Time 06/13/2024 text/html Patient is 54 year old male with history of shoulder pain, presenting today s/p LHB Tenotomy. Reports mild pain symptoms and is taking tylenol as needed to control symptoms. Appears to be weaning out of sling at this time. 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 Functional limitations include difficulty sleeping, limited shoulder ROM, and difficulty performing independent ADL's such as reaching and lifting. Patient goal is to no pain get back to all work. Davi Tompkins, PT [address], [place], [address], [facility] 07/07/2024 12:16:00 06/16/2024 text/html I am seeing the patient today under the supervision of Samuel who was available but who did not see the patient. Surgery: Left SAD/DCE combined with biceps tenotomy Interval History: Patient today for initial postoperative visit, patient has weaned from the sling, following postoperative instructions given at the surgery center. Past family, medical, social history and review of systems have been reviewed and updated on the medical history sheet saved to the patient's chart. A 12-point review of systems is negative x12 except as noted above and/or on the medical history sheet. Examination: Shoulder demonstrates well-healed incision, sutures removed, Steri-Strips applied, normal deltoid sensation, neurovascular status normal. Impression: s/p Shoulder surgery outlined above Plan: Recommendations made to continue following postoperative instructions, continued daily pendulum related exercises. Patient was given postoperative instruction to begin active assist range of motion, we will initiate formal outpatient physical therapy this week. Stressed importance of scapular posture while doing his exercises, when range of motion is full begin light resistive strengthening exercises at 8 weeks postoperatively. Patient was scheduled for routine follow-up care in 7 weeks time to assess progress. Kenny Torres PA-C [address] [facility] [address], [place], [address], [facility] 06/16/2024 19:25:01
== END 2025-03-02 10:06 | disposition home or self-care (01) ==
LOC: HO.HPHYS 09:29
PROVIDERS: PCP Internal Medicine; Visit Provider Physical Medicine & Rehabilitation
DX: M48.062 Spinal stenosis, lumbar region with neurogenic claudication (principal); M54.16 Radiculopathy, lumbar region
CPT/HCPCS: 99204

== ENCOUNTER → 2025-03-16 14:51 | Outpatient (BNVA) | payer SELFPAY | PROVIDERS: Visit Provider Physician Assistant | DX: Z02.79 Encounter for issue of other medical certificate (principal) ==